=== PATIENT | female | born 1945 | race Caucasian/White ===

== ENCOUNTER 2022-03-30 19:00 | Observation (INO) ==
[2022-03-30] MEDS ORDERED: ONDANSETRON INJ 2 MG/ML 2 ML VIAL IV STA (19:37)
[2022-03-30] MEDS ORDERED: MoRPHine SULFATE 10 MG/ML CARP/VIAL IV STA (19:37)
[2022-03-30] MEDS ORDERED: SODIUM CHLORIDE 0.9% 1000ML 1,000 ML IV ONE (19:37)
[2022-03-30] MEDS ORDERED: MoRPHine SULFATE 4 MG/ML 1 ML CARP\\VIAL ONE (19:41)
[2022-03-30] MEDS ORDERED: MoRPHine SULFATE 2 MG/ML CARP ONE (19:42)
--- NOTE | 2022-03-30 19:43 | XRay Report ---
XR chest 1V portable HISTORY: 76 years-old Female cp acute chest pain COMPARISON: None TECHNIQUE: AP view of the chest FINDINGS: The cardiomediastinal and hilar silhouettes are within normal limits. No pneumothorax, large pleural effusion, airspace consolidation or overt pulmonary edema. Mild blunting of the costophrenic angles. Atherosclerosis of the aorta. Bones of the chest appear grossly intact. IMPRESSION: Mild blunting of the costophrenic angles may be secondary to atelectasis versus trace ple ural effusions. ACT 112: Negative or not required by law. The above report was generated using voice recognition software. It may contain grammatical, syntax o r spelling errors. Electronically signed by: Jayce Noonan M.D. 03/30/2022 7:42 PM
--- NOTE | 2022-03-30 20:05 | Emergency Department Note ---
Impression & Plan Renal colic, Hydronephrosis, Acute flank pain, Elevated troponin ED Provider Note NAME: KAREN ROSS AGE: 76 SEX: F : 1945 ARRIVES VIA: Ambulance INFORMANT: Patient ED PROVIDER(S): Darnell Cason DO CHIEF COMPLAINT: abdominal pain and neck pain HPI: Patient is a 76-year-old female who presents the ER for right-sided flank pain. She notes that started today around 5 PM. She describes it as sharp stabbing. It was initially a 10 out of 10 and has improved slightly. Admits to nausea but no vomiting. No dysuria, urgency, or frequency. Feels exactly her previous stones. She also admits to bilateral neck pain which started after the severe right flank pain. This feels like the previous time that she was admitted and had a cardiomyopathy/Takotsubo's. She denies any chest pain admits to some mild shortness of breath. No other exacerbating or remitting factors. ROS: See above HPI for pertinent positives & negatives. A total of 10 systems reviewed and were otherwise negative. PAST MEDICAL HISTORY:See Below PAST SURGICAL HISTORY:See Below FAMILY HISTORY:See Below SOCIAL HISTORY:See Below HOME MEDICATIONS:See Below ALLERGIES:See Below VITALS:See Below PHYSICAL EXAMINATION: GENERAL: Sitting up in bed, alert, well appearing, well nourished, no distress, non-toxic EYE EXAM: normal conjunctiva. PERRL and EOM's grossly intact. OROPHARYNX: no exudate, no erythema, lips, buccal mucosa, and tongue normal and mucous membranes are moist NECK: supple, no nuchal rigidity, no adenopathy, non-tender LUNGS: Clear to auscultation. Normal chest wall mechanics HEART: no murmurs, S1 normal and S2 normal ABDOMEN: abdomen soft, non-tender, normo-active bowel sounds, no masses, no rebound or guarding. UPPER EXTREMITIES: upper extremities are grossly normal. LOWER EXTREMITIES: No pitting edema. NEURO EXAM: Normal sensorium, cranial nerves II-XII grossly intact, normal speech, no gross weakness of arms, no gross weakness of legs. MEDICAL DECISION MAKING: Patient is a 76-year-old female who presents the ER for the above-stated complaint. IV was established blood work was obtained. Labs show no significant leukocytosis or anemia. BMP along with LFTs bilirubin was unremarkable. Lipase is normal. UA with hematuria and contaminated UA. COVID was negative. Troponin was elevated at 120. CT shows an 8 mm stone with hydronephrosis at the UVJ likely causing the severe right flank pain. Do favor that elevated troponin is likely secondary to the pain but cannot be certain. Patient was given morphine Toradol fluids and Zofran. Discussed with Dr. Storey admitted for further work-up. She did become slightly hypoxic with the narcotics. We will hold on heparin as she is having a fair amount of hematuria at this time. Will defer to the hospitalist. She was given aspirin. Triage Nursing notes reviewed. Limited review of prior medical records performed Vital Signs: reviewed and remarkable for no significant abnormalities Differential diagnosis: Differential diagnoses includes but is not limited to gastritis, peptic ulcer disease, GERD, gallbladder disease, pancreatitis, small bowel obstruction, acute coronary syndrome, pericarditis, ischemic bowel, irritable bowel disease, irritable bowel syndrome, appendicitis, diverticulitis, malignancy, hernia, urinary tract infection, torsion, /ectopic (if female), perforation, trauma, infectious. ER treatment provided: See below Diagnostics interpreted by me: ECG: Sinus rhythm rate 80 Intermittent PVCs Left axis QTC 456 Cardiac Monitoring: An order was placed for continuous cardiac monitoring. The monitor shows a rate of 75 with sinus rhythm. Laboratory studies: As stated above and show below. Imaging studies: CT abdomen pelvis as described above Portable AP upright 1 view chest unremarkable Consultation(s): Discussed Yoshi Storey for further evaluation Procedures: none Critical Care: None Past Med/Surg History Medical History (Updated 03/30/22 @ 22:33 by Darnell Cason DO) ADD (attention deficit disorder) Cervical spinal stenosis Coronary artery disease (11/2018) nonobstructive Depression History of basal cell carcinoma History of non-ST elevation myocardial infarction (NSTEMI) (11/26/18) Lumbar spinal stenosis Restless leg syndrome Takotsubo cardiomyopathy (11/2018) Vitamin D deficiency Surgical History History of hysteroscopy History of Mohs micrographic surgery for skin cancer Nose for BCC History of wisdom tooth extraction Hx of breast lump removal bilateral Hx of lithotripsy S/P dilatation and curettage Family History Father Hypertension Coronary heart disease Hx of CABG Stroke Son , Tragic loss No problems noted. Mother Stroke Heart valve replaced Rheumatic fever Denies family history of Ovarian cancer Prostate cancer Myocardial infarction Breast cancer Colorectal cancer Social History Smoking Status: Former smoker Tobacco Type: Cigarettes Age Started Using Tobacco: 29; Age Quit Using Tobacco: 66; packs per day: 1; Number of Years Since Quit: 9; Second Hand Exposure: No; Hx Alcohol Use: No Hx Substance Use: No Preferred Language: Armenian Communication Ability: Effective Visual Impairment: Limited Hearing Ability: Normal Beliefs That Will Affect Care: None marital status: / Current Living Situation: Alone 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; [employer]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 Feels Safe at Home: Yes Childhood Exposure to Second-Hand Smoke: Yes caffeine: Yes (Coffee x 2 per day.) during the past year weight has: increased > 10 lbs Dental Care, Regularly: Yes Physical Activity Frequency: Daily Seatbelt Use: always Sunscreen Use: Yes Allergies Allergies Allergy/AdvReac Type Severity Reaction Status Date / Time iodine Allergy Unknown Unknown Verified 03/30/22 19:44 paroxetine Allergy Unknown Unknown Verified 03/30/22 19:44 Penicillins Allergy Unknown Unknown Verified 03/30/22 19:44 ampicillin AdvReac Intermediate Hives Verified 03/30/22 19:44 fluoxetine AdvReac Intermediate hand pain Verified 03/30/22 19:44 Sulfa (Sulfonamide AdvReac Intermediate Nausea Verified 03/30/22 19:44 Antibiotics) Home Meds Home Medications Medication Instructions Recorded Confirmed aspirin 81 mg tablet,delayed 81 mg PO DAILY 10/18/19 03/30/22 release (Adult Low Dose Aspirin) baclofen 10 mg tablet 10 mg PO BID PRN 08/14/20 03/30/22 magnesium 250 mg tablet 250 mg PO DAILY 08/14/20 03/30/22 cetirizine 10 mg tablet 10 mg PO DAILY PRN 07/23/21 03/30/22 diphenhydramine HCl 25 mg capsule 25 mg PO DAILY PRN cap 07/23/21 03/30/22 famotidine 10 mg tablet 10 mg PO DAILY 07/23/21 03/30/22 simethicone 125 mg capsule (Gas-X 125 mg PO DAILY PRN 07/23/21 03/30/22 Extra Strength) carvedilol 6.25 mg tablet (Coreg) 6.25 mg PO QPM 03/30/22 03/30/22 duloxetine 30 mg capsule,delayed 30 mg PO QPM 03/30/22 03/30/22 release (Cymbalta) hydrocodone 5 mg-acetaminophen 325 1 tab PO DIRECTED PRN 03/30/22 03/30/22 mg tablet Previous Rx's Medication Instructions Recorded ropinirole 0.5 mg tablet 0.25 mg PO HS PRN #30 tab 07/16/20 cholecalciferol (vitamin D3) 50 50 mcg PO DAILY #30 cap 02/25/21 mcg (2,000 unit) capsule ramipril 5 mg capsule 5 mg PO DAILY #90 cap 11/12/21 spironolactone 25 mg tablet 25 mg PO DAILY #90 tab 11/12/21 Results & Data (ED) Vital Signs Vital Signs - 24 hr 03/30/22 19:03 03/30/22 21:00 Temperature 36.7 C Temperature Source Oral Pulse Rate 78 Pulse Rate [Right Finger] 86 Pulse Rhythm Regular Pulse Rhythm [Right Finger] Regular Pulse Strength Normal Pulse Strength [Right Finger] Normal Respiratory Rate 20 20 Respiratory Effort / Characteristics Non-Labored Non-Labored Respiratory Depth Normal Normal Respiratory Pattern Regular Regular Blood Pressure 144/77 H Blood Pressure [Right Arm] 143/83 H Blood Pressure Mean 99 Blood Pressure Mean [Right Arm] 103 Blood Pressure Position Lying Blood Pressure Position [Right Arm] Lying Pulse Oximetry 95 95 Oxygen Delivery Method Room Air Nasal Cannula Oxygen Flow Rate 2 Sepsis Recent Fever Within 48 Hours No Sepsis New/Unexplained Change in Mental Status No Sepsis Action Taken by Nursing No Action Required Laboratory Data Result diagrams: 03/30/22 19:32 03/30/22 19:32 Lab Results 03/30/22 03/30/22 03/30/22 Range/Units 19:32 19:32 19:34 WBC 7.37 (4.8-10.8) K/uL RBC 4.23 (4.2-5.4) M/uL Hgb 13.1 (12.0-16.0) g/dL Hct 39.1 (37-47) % MCV 92.4 (80-100) fL MCH 31.0 (25-34) pg MCHC 33.5 (32-36) g/dL RDW Std Deviation 43.5 (36.4-46.3) fL RDW Coeff of Nadia 12.8 (11.5-14.5) % Plt Count 282 (130-400) K/uL MPV 10.8 H (7.4-10.4) fL Immature Gran % (Auto) 0.1 % Neut % (Auto) 56.7 % Lymph % (Auto) 25.8 % [place] % (Auto) 12.5 % Eos % (Auto) 4.6 % Baso % (Auto) 0.3 % Neut # (Auto) 4.18 (1.4-6.5) K/uL Lymph # (Auto) 1.90 (1.2-3.4) K/uL [place] # (Auto) 0.92 H (0.11-0.59) K/uL Eos # (Auto) 0.34 (0-0.5) K/uL Baso # (Auto) 0.02 (0-0.2) K/uL Immature Gran # (Auto) 0.01 (0.00-0.02) K/uL Sodium 136 (136-145) mmol/L Potassium 4.0 (3.5-5.1) mmol/L Chloride 103 (98-107) mmol/L Carbon Dioxide 25 (21-32) mmol/L Anion Gap 8 (3-11) BUN 18 (6-23) mg/dl Creatinine 0.75 (0.6-1.2) mg/dl Est Cr Clr Drug Dosing 73.6 ml/min Est GFR ( Amer) 90.4 ml/min Est GFR (Non-Af Amer) 78.0 ml/min BUN/Creatinine Ratio 24.0 H (10-20) Glucose 128 H (70-99(Fasting)) mg/dl Calcium 9.0 (8.5-10.1) mg/dl Total Bilirubin 0.8 (0.2-1.0) mg/dl AST 16 (13-39) U/L ALT 13 (7-52) U/L Alkaline Phosphatase 69 (34-104) U/L Troponin I High Sens 120.4 H* (0-14) pg/ml Total Protein 7.3 (6.0-8.3) gm/dl Albumin 4.3 (3.4-5.0) gm/dl Globulin 3.0 (2.5-4.0) gm/dl Albumin/Globulin Ratio 1.4 (0.9-2) Lipase 18 (11-82) U/L Urine Color [place] Urine Appearance Cloudy A (Clear) Urine pH 5.5 (4.5-7.5) Ur Specific [place] 1.020 (1.000-1.030) Urine Protein 3+ H (Negative) Urine Glucose (UA) Negative (Negative) Urine Ketones Negative (Negative) Urine Blood 3+ H (Negative) Urine Nitrite Negative (Negative) Urine Bilirubin Negative (Negative) Urine Urobilinogen Negative (Negative) Ur Leukocyte Esterase 2+ H (Negative) Urine WBC (Auto) >30 H (0-5) /hpf Urine RBC (Auto) >30 H (0-4) /hpf U Hyaline Cast (Auto) 1-5 (0-5) /lpf U Epithel Cells (Auto) >30 H (0-5) /lpf Urine Bacteria (Auto) 1+ H (Negative) SARS-CoV-2, RNA, NAAT (NEGATIVE) 03/30/22 Range/Units 21:30 WBC (4.8-10.8) K/uL RBC (4.2-5.4) M/uL Hgb (12.0-16.0) g/dL Hct (37-47) % MCV (80-100) fL MCH (25-34) pg MCHC (32-36) g/dL RDW Std Deviation (36.4-46.3) fL RDW Coeff of Nadia (11.5-14.5) % Plt Count (130-400) K/uL MPV (7.4-10.4) fL Immature Gran % (Auto) % Neut % (Auto) % Lymph % (Auto) % [place] % (Auto) % Eos % (Auto) % Baso % (Auto) % Neut # (Auto) (1.4-6.5) K/uL Lymph # (Auto) (1.2-3.4) K/uL [place] # (Auto) (0.11-0.59) K/uL Eos # (Auto) (0-0.5) K/uL Baso # (Auto) (0-0.2) K/uL Immature Gran # (Auto) (0.00-0.02) K/uL Sodium (136-145) mmol/L Potassium (3.5-5.1) mmol/L Chloride (98-107) mmol/L Carbon Dioxide (21-32) mmol/L Anion Gap (3-11) BUN (6-23) mg/dl Creatinine (0.6-1.2) mg/dl Est Cr Clr Drug Dosing ml/min Est GFR ( Amer) ml/min Est GFR (Non-Af Amer) ml/min BUN/Creatinine Ratio (10-20) Glucose (70-99(Fasting)) mg/dl Calcium (8.5-10.1) mg/dl Total Bilirubin (0.2-1.0) mg/dl AST (13-39) U/L ALT (7-52) U/L Alkaline Phosphatase (34-104) U/L Troponin I High Sens (0-14) pg/ml Total Protein (6.0-8.3) gm/dl Albumin (3.4-5.0) gm/dl Globulin (2.5-4.0) gm/dl Albumin/Globulin Ratio (0.9-2) Lipase (11-82) U/L Urine Color Urine Appearance (Clear) Urine pH (4.5-7.5) Ur Specific [place] (1.000-1.030) Urine Protein (Negative) Urine Glucose (UA) (Negative) Urine Ketones (Negative) Urine Blood (Negative) Urine Nitrite (Negative) Urine Bilirubin (Negative) Urine Urobilinogen (Negative) Ur Leukocyte Esterase (Negative) Urine WBC (Auto) (0-5) /hpf Urine RBC (Auto) (0-4) /hpf U Hyaline Cast (Auto) (0-5) /lpf U Epithel Cells (Auto) (0-5) /lpf Urine Bacteria (Auto) (Negative) SARS-CoV-2, RNA, NAAT NEGATIVE (NEGATIVE) Administered Medications Discontinued Medications Aspirin (Aspirin Chew 324 Mg) 324 mg PO NOW STA Stop: 03/30/22 20:44 Last Admin: 03/30/22 21:08 Dose: 324 mg Documented by: [id number] Sodium Chloride (Nss 1000ml) 1,000 mls @ 999 mls/hr IV .Q1H1M ONE Stop: 03/30/22 20:37 Last Infusion: 03/30/22 21:21 Dose: 0 mls/hr Documented by: [id number] Admin: 03/30/22 19:45 Dose: 999 mls/hr Documented by: [id number] Ketorolac Tromethamine (Ketorolac Tromethamine 15 Mg/Ml Vial) 15 mg IV NOW ONE Stop: 03/30/22 20:59 Last Admin: 03/30/22 21:09 Dose: 15 mg Documented by: [id number] Morphine Sulfate (Morphine Sulfate 10 Mg/Ml Carp/Vial) 6 mg IV NOW STA Stop: 03/30/22 19:38 Last Admin: 03/30/22 19:52 Dose: Not Given Documented by: [id number] Morphine Sulfate (Morphine Sulfate 4 Mg/Ml 1 Ml Carp\Vial) Confirm Administered Dose 4 mg .ROUTE .STK-MED ONE Stop: 03/30/22 19:42 Last Admin: 03/30/22 19:45 Dose: 4 mg Documented by: [id number] Morphine Sulfate (Morphine Sulfate 2 Mg/Ml Carp) Confirm Administered Dose 2 mg .ROUTE .STK-MED ONE Stop: 03/30/22 19:43 Last Admin: 03/30/22 19:45 Dose: 2 mg Documented by: [id number] Ondansetron HCl (Ondansetron Inj 2 Mg/Ml 2 Ml Vial) 4 mg IV NOW STA Stop: 03/30/22 19:38 Last Admin: 03/30/22 19:45 Dose: 4 mg Documented by: [id number] Imaging Data Radiologist's Impression: Chest X-Ray 03/30/22 19:09 XR chest 1V portable HISTORY: 76 years-old Female cp acute chest pain COMPARISON: None TECHNIQUE: AP view of the chest FINDINGS: The cardiomediastinal and hilar silhouettes are within normal limits. No pneumothorax, large pleural effusion, airspace consolidation or overt pulmonary edema. Mild blunting of the costophrenic angles. Atherosclerosis of the aorta. Bones of the chest appear grossly intact. IMPRESSION: Mild blunting of the costophrenic angles may be secondary to atelectasis versus trace pleural effusions. ACT 112: Negative or not required by law. The above report was generated using voice recognition software. It may contain grammatical, syntax or spelling errors. Electronically signed by: Jayce Noonan M.D. 03/30/2022 7:42 PM Abdomen/Pelvis CT 03/30/22 19:[address] WITHOUT CONTRAST CT DOSE: 748.67 mGy.cm HISTORY: Acute right-sided flank pain in a patient with history of kidney stones r flank pain TECHNIQUE: Multiaxial CT images of the abdomen and pelvis were performed without contrast. A dose lowering technique was utilized adhering to the principles of ALARA. COMPARISON STUDY: CT abdomen 01/20/2010 FINDINGS: Mitral annular calcifications. Mild bibasilar atelectasis. Partially imaged 3 mm nodule the basal right lower lobe on image 1 of series 3. Mild intralobular septal thickening of the lung bases. There is no pneumatosis or pneumoperitoneum. The unenhanced spleen, pancreas, gallbladder and adrenal glands are unremarkable. There are a few hypodense foci within the liver suggestive of cysts measuring up to 2 cm within the right hepatic lobe. The 2 cm lesion has increased in size from 2010. Numerous nonobstructing calculi of the right kidney measure up to 7 mm. There is mild to moderate right-sided hydroureteronephrosis secondary to an obstructing 8 x 6 x 5 mm calculus of the distal right ureter just proximal to the ureterovesicular junction. Numerous large not affecting calculi of the left kidney measure up to approximately 2 cm. There is a 1.6 cm calculus of the left renal pelvis. Mild associated pelviectasis with adjacent inflammatory stranding. Partially decompressed urinary bladder. 2.1 cm hypodense structure abutting the left fundal uterus is likely benign, previously 1.1 cm. Atherosclerosis of the aorta. There is no lymphadenopathy identified. No bowel obstruction or bowel wall thickening. Colonic diverticulosis. Noninflamed appendix. Mild colonic fecal retention. Tiny fat filled periumbilical hernia. Lumbar levoscoliosis. Degenerative changes of the spine, pelvis and hips. IMPRESSION: 1. Mild to moderate right-sided hydroureteronephrosis secondary to an obstructing 8 mm calculus of the right ureterovesicular junction. 2. Numerous large bilateral renal calculi. This includes a 1.6 cm calculus of the left renal pelvis resulting in mild associated pelviectasis without nasreen hydronephrosis. 3. No bowel obstruction or bowel wall thickening. Noninflamed appendix. 4. Additional findings as above. ACT 112: Negative or not required by law. The above report was generated using voice recognition software. It may contain grammatical, syntax or spelling errors. Electronically signed by: Jayce Noonan M.D. 03/30/2022 8:31 PM Discharge Plan Visit Data Chief Complaint: Flank Pain ED Provider: Darnell Cason Discharge Problem: Renal colic, Hydronephrosis, Acute flank pain, Elevated troponin Forms Stand Alone Forms: [facility] Prescriptions Prescriptions: No Action ropinirole 0.5 mg tablet 0.25 mg PO HS PRN (Reason: restless leg(s)) Qty: 30 RF: 2 cholecalciferol (vitamin D3) 50 mcg (2,000 unit) capsule 50 mcg PO DAILY Qty: 30 RF: 0 spironolactone 25 mg tablet 25 mg PO DAILY Qty: 90 RF: 3 ramipril 5 mg capsule 5 mg PO DAILY Qty: 90 RF: 3 diphenhydramine HCl 25 mg capsule 25 mg PO DAILY PRN (Reason: ALLERGIES/SLEEP/ITCHING) RF: 0 cetirizine 10 mg tablet 10 mg PO DAILY PRN (Reason: Congestion) RF: 0 simethicone [Gas-X Extra Strength] 125 mg capsule 125 mg PO DAILY PRN (Reason: GAS DISCOMFORT) RF: 0 famotidine 10 mg tablet 10 mg PO DAILY RF: 0 aspirin [Adult Low Dose Aspirin] 81 mg tablet,delayed release (DR/EC) 81 mg PO DAILY RF: 0 baclofen 10 mg tablet 10 mg PO BID PRN (Reason: MUSCLE SPASMS) RF: 0 magnesium 250 mg tablet 250 mg PO DAILY RF: 0 hydrocodone-acetaminophen 5-325 mg tablet 1 tab PO DIRECTED PRN (Reason: Pain) RF: 0 carvedilol [Coreg] 6.25 mg tablet 6.25 mg PO QPM RF: 0 duloxetine [Cymbalta] 30 mg capsule,delayed release(DR/EC) 30 mg PO QPM RF: 0 Referrals Referrals: Angeles Foster DO [Primary Care Provider] - Discharge Problem: Hydronephrosis Qualifiers: Hydronephrosis type: unspecified Qualified Code(s): N13.30 - Unspecified hydronephrosis
[2022-03-30 20:09] LABS: Basophils # (auto) 0.02 K/uL (0-0.2); Basophils % (auto) 0.3 %; Eosinophils # (auto) 0.34 K/uL (0-0.5); Eosinophils % (auto) 4.6 %; Hematocrit (blood only) 39.1 % (37-47); Hemoglobin 13.1 g/dL (12.0-16.0); Immature Granulocytes # (auto) 0.01 K/uL (0.00-0.02); Immature Granulocytes % (auto) 0.1 %; Lymphocytes % (auto) 25.8 %; Mean Corpuscular Hgb Conc 33.5 g/dL (32-36); Mean Corpuscular Volume 92.4 fL (80-100); Mean Platelet Volume 10.8 fL (7.4-10.4); Monocytes # (auto) 0.92 K/uL (0.11-0.59); Monocytes % (auto) 12.5 %; Neutrophils # (auto) 4.18 K/uL (1.4-6.5); Neutrophils % (auto) 56.7 %; Platelet Count 282 K/uL (130-400); RDW Coefficient of Variation 12.8 % (11.5-14.5); RDW Standard Deviation 43.5 fL (36.4-46.3); Red Blood Count 4.23 M/uL (4.2-5.4); White Blood Count 7.37 K/uL (4.8-10.8)
--- NOTE | 2022-03-30 20:33 | CT Scan Report ---
ABDOMEN AND PELVIS CT WITHOUT CONTRAST CT DOSE: 748.67 mGy.cm HISTORY: Acute right-sided flank pain in a patient with history of kidney stones r flank pain TECHNIQUE: Multiaxial CT images of the abdomen and pelvis were performed without contrast. A dose lo wering technique was utilized adhering to the principles of ALARA. COMPARISON STUDY: CT abdomen 01/20/2010 FINDINGS: Mitral annular calcifications. Mild bibasilar atelectasis. Partially imaged 3 mm nodule the basal rig ht lower lobe on image 1 of series 3. Mild intralobular septal thickening of the lung bases. There is no pneumatosis or pneumoperitoneum. The unenhanced spleen, pancreas, gallbladder and adrenal glands are unremarkable. There are a few hypodense foci within the liver suggestive of cysts measuring up to 2 cm within the right hepatic lobe. The 2 cm lesion has increased in size from 2010. Numerous nonobstructing calculi of the right kidney measure up to 7 mm. There is mild to moderate rig ht-sided hydroureteronephrosis secondary to an obstructing 8 x 6 x 5 mm calculus of the distal right ureter just proximal to the ureterovesicular junction. Numerous large not affecting calculi of the le ft kidney measure up to approximately 2 cm. There is a 1.6 cm calculus of the left renal pelvis. Mild associated pelviectasis with adjacent inflammatory stranding. Partially decompressed urinary bladder . 2.1 cm hypodense structure abutting the left fundal uterus is likely benign, previously 1.1 cm. Ath erosclerosis of the aorta. There is no lymphadenopathy identified. No bowel obstruction or bowel wall thickening. Colonic diverticulosis. Noninflamed appendix. Mild col onic fecal retention. Tiny fat filled periumbilical hernia. Lumbar levoscoliosis. Degenerative change s of the spine, pelvis and hips. IMPRESSION: 1. Mild to moderate right-sided hydroureteronephrosis secondary to an obstructing 8 mm calculus of th e right ureterovesicular junction. 2. Numerous large bilateral renal calculi. This includes a 1.6 cm calculus of the left renal pelvis r esulting in mild associated pelviectasis without nasreen hydronephrosis. 3. No bowel obstruction or bowel wall thickening. Noninflamed appendix. 4. Additional findings as above. ACT 112: Negative or not required by law. The above report was generated using voice recognition software. It may contain grammatical, syntax o r spelling errors. Electronically signed by: Jayce Noonan M.D. 03/30/2022 8:31 PM
[2022-03-30 20:34] LABS: Albumin Globulin Ratio 1.4 (0.9-2); Albumin Level 4.3 gm/dl (3.4-5.0); Bilirubin,Total 0.8 mg/dl (0.2-1.0); Creatinine Clr Calc Pharmacy 73.6 ml/min; Est GFR (African American) 90.4 ml/min; Total Protein 7.3 gm/dl (6.0-8.3)
[2022-03-30 20:40] LABS: Troponin I High Sensitivity 120.4 pg/ml (0-14)
[2022-03-30] MEDS ORDERED: ASPIRIN CHEW 324 MG PO STA (20:43)
[2022-03-30 20:50] LABS: Appearance Urine Cloudy (Clear); Bacteria Urine Automated 1+ (Negative); Bilirubin Urine Negative (Negative); Blood Urine 3+ (Negative); Color Urine Orange; Epithelial Cell Urine Auto >30 /lpf (0-5); Glucose Urine UA Negative (Negative); Ketones Urine Negative (Negative); Leukocyte Esterase Urine 2+ (Negative); Nitrite Urine Negative (Negative); Protein Urine 3+ (Negative); RBC Urine Automated >30 /hpf (0-4); Urobilinogen Urine Negative (Negative); WBC Urine Automated >30 /hpf (0-5); pH Urine 5.5 (4.5-7.5)
[2022-03-30] MEDS ORDERED: KETOROLAC TROMETHAMINE 15 MG/ML VIAL IV ONE (20:58)
[2022-03-30] MEDS ORDERED: LORazepam 0.5 MG in SYRINGE 0.125 ML IV STA (22:00)
[2022-03-30] MEDS ORDERED: LORazepam 2 MG/1 ML VIAL IV STA (22:16)
--- NOTE | 2022-03-30 22:19 | Urology Consultation ---
Date of Consultation March 30, 2022 Assessment & Plan (1) Renal colic: The patient is being admitted to the hospital service. Due to her cardiac history and elevated troponin she is undergoing cardiac evaluation. Concerning patient's nephrolithiasis we recommend proceeding as follows: Make patient n.p.o. after midnight. If patient is medically cleared or she will be ready for any cystoscopy that may be required. Her cardiac issues will take precedence over this for the present time. At the present time the patient is afebrile, hemodynamically stable, has normal renal function, and has a nonelevated white blood cell count therefore an emergent urologic procedure is not required at this time. Would recommend hydrating with IV fluids but performed so cautiously with concern of underlying cardiac pathology I discussed with the medical service and they are planning on initiating antibiotics due to her abnormal urinalysis Supervising Physician Co-Signing Physician Notes I have discussed Ms. Castro's case with Jhon Hernandez PA-C and agree with the above documentation. She has an 8 mm right sided stone, as well as an elevated troponin. She is currently undergoing work-up for her cardiac issues. There is no significant evidence of infection and she is hemodynamically stable. Please keep her n.p.o. for reassessment. History of Present Illness Reason for Consultation: Nephrolithiasis History of Present Illness This is a 76-year-old female who presented to [facility] emergency department secondary to right-sided flank pain. Patient says that she was feeling fine until about 5:00 PM today when she developed sudden onset of right flank pain with radiation to the front of her abdomen. She had associated nausea and vomiting. She denies any fevers but did report occasional sweats. She denies any dysuria but does report some suprapubic pressure and notes that when she most recently voided she noted some gross hematuria. Patient does have a history of kidney stones in the past and she says she has required urologic procedure secondary to this but it has been several years. The patient does have a significant cardiac history as she has suffered from Takatsubo syndrome, however she has recovered from this. Due to her elevated troponin (noted below) I did ask her if she experienced any chest pain prior to admission which she denied to me. She does however report difficulty catching her breath at times. Concerning her cardiac history her most recent echo available for my review was from 10/13/2020. This showed the patient had an ejection fraction of 60% with normal wall motion. No regional wall motion abnormalities were known. There were no significant valvular abnormalities on the study. Today in the emergency department the patient had labs and imaging which I independently reviewed. Chest x-ray showed some blunting of the costophrenic angles with trace pleural effusions. A CT scan of the abdomen pelvis showed the patient had an obstructing 8 mm kidney stone on the right side at the ureterovesical junction causing hydronephrosis. Labs include a CBC her white blood cell count, hemoglobin, hematocrit, and platelet count were normal. Chemistry profile showed a sodium, potassium, BUN, and creatinine were all normal. The patient did have an elevated troponin at a level of 120.4. Urinalysis did show cloudy urine with 2+ leukocyte Estrace and greater than 30 white blood cells per high-power field. There is 1+ bacteria in the study but this was negative for nitrites. A COVID test was performed and was noted to be negative. At the time of my interview the patient was resting comfortably in bed and her pain had markedly improved. Allergies Allergy/AdvReac Type Severity Reaction Status Date / Time iodine Allergy Unknown Unknown Verified 03/30/22 19:44 paroxetine Allergy Unknown Unknown Verified 03/30/22 19:44 Penicillins Allergy Unknown Unknown Verified 03/30/22 19:44 ampicillin AdvReac Intermediate Hives Verified 03/30/22 19:44 fluoxetine AdvReac Intermediate hand pain Verified 03/30/22 19:44 Sulfa (Sulfonamide AdvReac Intermediate Nausea Verified 03/30/22 19:44 Antibiotics) Home Medications Medication Instructions Recorded Confirmed Type aspirin 81 mg tablet,delayed 81 mg PO DAILY 10/18/19 03/30/22 History release (Adult Low Dose Aspirin) ropinirole 0.5 mg tablet 0.25 mg PO HS PRN #30 tab 07/16/20 03/30/22 Rx baclofen 10 mg tablet 10 mg PO BID PRN 08/14/20 03/30/22 History magnesium 250 mg tablet 250 mg PO DAILY 08/14/20 03/30/22 History cholecalciferol (vitamin D3) 50 50 mcg PO DAILY #30 cap 02/25/21 03/30/22 Rx mcg (2,000 unit) capsule cetirizine 10 mg tablet 10 mg PO DAILY PRN 07/23/21 03/30/22 History diphenhydramine HCl 25 mg capsule 25 mg PO DAILY PRN cap 07/23/21 03/30/22 History famotidine 10 mg tablet 10 mg PO DAILY 07/23/21 03/30/22 History simethicone 125 mg capsule (Gas-X 125 mg PO DAILY PRN 07/23/21 03/30/22 History Extra Strength) ramipril 5 mg capsule 5 mg PO DAILY #90 cap 11/12/21 03/30/22 Rx spironolactone 25 mg tablet 25 mg PO DAILY #90 tab 11/12/21 03/30/22 Rx carvedilol 6.25 mg tablet (Coreg) 6.25 mg PO QPM 03/30/22 03/30/22 History duloxetine 30 mg capsule,delayed 30 mg PO QPM 03/30/22 03/30/22 History release (Cymbalta) hydrocodone 5 mg-acetaminophen 325 1 tab PO DIRECTED PRN 03/30/22 03/30/22 History mg tablet Patient History Medical History (Updated 03/30/22 @ 23:14 by Yoshi Storey MD) ADD (attention deficit disorder) Cervical spinal stenosis Coronary artery disease (11/2018) nonobstructive Depression History of basal cell carcinoma History of non-ST elevation myocardial infarction (NSTEMI) (11/26/18) Lumbar spinal stenosis Restless leg syndrome Takotsubo cardiomyopathy (11/2018) Vitamin D deficiency Surgical History History of hysteroscopy History of Mohs micrographic surgery for skin cancer Nose for BCC History of wisdom tooth extraction Hx of breast lump removal bilateral Hx of lithotripsy S/P dilatation and curettage Family History Father Hypertension Coronary heart disease Hx of CABG Stroke Son , Tragic loss No problems noted. Mother Stroke Heart valve replaced Rheumatic fever Denies family history of Ovarian cancer Prostate cancer Myocardial infarction Breast cancer Colorectal cancer Social History Smoking Status: Former smoker Tobacco Type: Cigarettes Age Started Using Tobacco: 29; Age Quit Using Tobacco: 66; packs per day: 1; Number of Years Since Quit: 9; Second Hand Exposure: No; Do You Dip or Chew Tobacco: No; Hx Alcohol Use: Yes Alcohol type: wine and hard liquor Alcohol Intake Frequency: Monthly or Less Hx Substance Use: No Preferred Language: Mohawk Communication Ability: Effective Visual Impairment: Limited Hearing Ability: Normal Operating Room Scheduler Required: No Beliefs That Will Affect Care: None marital status: / Current Living Situation: Alone 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; 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 Other Information That Helps Us Care for You: No Feels Safe at Home: Yes Safety Concerns: Feels Safe At This Time Childhood Exposure to Second-Hand Smoke: Yes caffeine: Yes (Coffee x 2 per day.) during the past year weight has: increased > 10 lbs Dental Care, Regularly: Yes Physical Activity Frequency: Daily Seatbelt Use: always Sunscreen Use: Yes Assistive Devices: Denture - Upper, Denture - Lower and Glasses Assistive Devices Comment: contacts Review of Systems Constitutional: + sweats; no fever Eyes: no eye pain Ear, Nose, Mouth, Throat: no ear pain Respiratory: + dyspnea Cardiovascular: no chest pain Gastrointestinal: + abdominal pain, + nausea and + vomiting Genitourinary: as per Subjective / HPI Musculoskeletal: + back pain (Right flank) Integumentary: no rash Neurologic: no localized weakness Physical Exam Constitutional: well developed and well nourished; no acute distress Eyes: no conjunctival abnormality ENMT: Ears: no hearing impairment Mouth: no oropharynx abnormality Neck: trachea midline Respiratory: normal respiratory effort; no respiratory distress and no labored breathing Cardiovascular: Rate/Rhythm: regular rate and regular rhythm Gastrointestinal (Abdomen): Soft and nonrigid, nontender to palpation. Musculoskeletal: No calf tenderness Skin: no rashes Neurologic: moves all extremities Psychiatric: A+Ox3, euthymic affect Genitourinary: no CVA tenderness Results & Data ([facility]) Vital Signs (Past 12 Hours) Vital Signs Temp Pulse Pulse Resp BP BP Pulse Ox 03/30/22 21:00 86 20 143/83 H 95 03/30/22 19:03 36.7 C 78 20 144/77 H 95 PG Care Time/CCT Total # of Minutes Spent Total Time Spent with Patient: Total time spent is greater than 50% in coordination of care (as documented) at patient's floor/unit and/or counseling patient: Coding Level of Care Code 27055 Inpt Consult Level 5 Diagnoses Renal colic N23
--- NOTE | 2022-03-30 23:24 | History & Physical Report ---
Date of Service March 30, 2022 Assessment & Plan (1) Renal colic: Plan: CT a/p in the ER showed "Mild to moderate right-sided hydroureteronephrosis secondary to an obstructing 8 mm calculus of the right ureterovesicular junction." - Urology consulted - Gentle IV fluids given hx of cardiomyopathy - Pain and nausea control - NPO @ midnight for stent tomorrow - Flomax - Begin ceftriaxone; follow urine cx - Discussed with overnight urology PA - ideally would like to get results of TTE prior to going for stent to ensure no repeat of her cardiomyopathy. (2) Elevated troponin: Plan: Initial troponin elevated to 120. EKG with many PVCs. Discussed with on-call cardiology; does not feel this is new LBBB. Had ongoing lower jaw pain that resolved with Ativan 0.5 mg x 1; however, given similar presentation to prior cardiomyopathy, I told the patient to alert the RN overnight if it returns. - Closely trend EKGs and troponins - TTE ordered for the morning; if there are any abnormalities, would consult cardiology. (3) Takotsubo cardiomyopathy: Plan: Had an episode very similar to the present one in 11/2018 with nephrolithiasis followed by neck/jaw pain. EF was found to be 30-35%. She underwent catheterization which demonstrated non-obstructive CAD. She was diagnosed with stress-induced cardiomyopathy. She had a LifeVest for some time and was on goal- directed therapy. EF improved to 50 - 55% in 04/2019, and EF was 55-60% on echo in 10/2020 which is the last one I see. - This episode is concerningly similar to prior episode. - Continue home ASA, beta-alexx (though why carvedilol daily?), ACEi, and spironolactone - TTE ordered for AM (4) Hypertension: Plan: BP was 135/75 in the ER. - Continue above meds - Monitor BP (5) Depression: Plan: With anxiety. - Continue home duloxetine - Low-dose Ativan PRN for anxiety, though was clear with patient that she should alert RN if she has further neck/jaw pain. (6) DVT prophylaxis: Plan: SCDs - Hold heparin for now given likely procedure tomorrow Full code per patient wishes Admission and Anticipated Discharge Date Admission Date: March 30, 2022 History of Present Illness Primary Care Provider: Angeles Foster DO 76yo F w/ hx of Takasubo's cardiomyopathy who presents with right kidney stone. The patient was in her normal state of health until about 5:15pm today. She had acute onset right-sided flank pain with nausea, diaphoresis, and shortness of breath. The pain was 10/10 and wrapped around the right side of her abdomen. There were no alleviating factors. About 15 minutes after that, she notes she had some pain in the lower jaw area. She specifically denies chest pain, arm pain, or radiation from that area, but says it was just in the under side of jaw (bilaterally). She denies palpitations, denies lightheadedness, denies dizziness, denies any vomiting with this pain. However, she felt an increasing sense of panic, and that's when she decided to come to the ER. In the ER, she received a total of 10 mg of morphine as well as Toradol which she says has resolved her right flank pain at this time, but she notes that she still has some pain in the under side of her jaw which also makes her feel short of breath. Allergies Allergy/AdvReac Type Severity Reaction Status Date / Time iodine Allergy Unknown Unknown Verified 03/30/22 19:44 paroxetine Allergy Unknown Unknown Verified 03/30/22 19:44 Penicillins Allergy Unknown Unknown Verified 03/30/22 19:44 ampicillin AdvReac Intermediate Hives Verified 03/30/22 19:44 fluoxetine AdvReac Intermediate hand pain Verified 03/30/22 19:44 Sulfa (Sulfonamide AdvReac Intermediate Nausea Verified 03/30/22 19:44 Antibiotics) Home Medications Medication Instructions Recorded Confirmed Type aspirin 81 mg tablet,delayed 81 mg PO DAILY 10/18/19 03/30/22 History release (Adult Low Dose Aspirin) ropinirole 0.5 mg tablet 0.25 mg PO HS PRN #30 tab 07/16/20 03/30/22 Rx baclofen 10 mg tablet 10 mg PO BID PRN 08/14/20 03/30/22 History magnesium 250 mg tablet 250 mg PO DAILY 08/14/20 03/30/22 History cholecalciferol (vitamin D3) 50 50 mcg PO DAILY #30 cap 02/25/21 03/30/22 Rx mcg (2,000 unit) capsule cetirizine 10 mg tablet 10 mg PO DAILY PRN 07/23/21 03/30/22 History diphenhydramine HCl 25 mg capsule 25 mg PO DAILY PRN cap 07/23/21 03/30/22 History famotidine 10 mg tablet 10 mg PO DAILY 07/23/21 03/30/22 History simethicone 125 mg capsule (Gas-X 125 mg PO DAILY PRN 07/23/21 03/30/22 History Extra Strength) ramipril 5 mg capsule 5 mg PO DAILY #90 cap 11/12/21 03/30/22 Rx spironolactone 25 mg tablet 25 mg PO DAILY #90 tab 11/12/21 03/30/22 Rx carvedilol 6.25 mg tablet (Coreg) 6.25 mg PO QPM 03/30/22 03/30/22 History duloxetine 30 mg capsule,delayed 30 mg PO QPM 03/30/22 03/30/22 History release (Cymbalta) hydrocodone 5 mg-acetaminophen 325 1 tab PO DIRECTED PRN 03/30/22 03/30/22 History mg tablet Past Med/Surg History Medical History (Updated 03/30/22 @ 23:14 by Yoshi Storey MD) ADD (attention deficit disorder) Cervical spinal stenosis Coronary artery disease (11/2018) nonobstructive Depression History of basal cell carcinoma History of non-ST elevation myocardial infarction (NSTEMI) (11/26/18) Lumbar spinal stenosis Restless leg syndrome Takotsubo cardiomyopathy (11/2018) Vitamin D deficiency Surgical History History of hysteroscopy History of Mohs micrographic surgery for skin cancer Nose for BCC History of wisdom tooth extraction Hx of breast lump removal bilateral Hx of lithotripsy S/P dilatation and curettage Family History Father Hypertension Coronary heart disease Hx of CABG Stroke Son , Tragic loss No problems noted. Mother Stroke Heart valve replaced Rheumatic fever Denies family history of Ovarian cancer Prostate cancer Myocardial infarction Breast cancer Colorectal cancer Social History Smoking Status: Former smoker Tobacco Type: Cigarettes Age Started Using Tobacco: 29; Age Quit Using Tobacco: 66; packs per day: 1; Number of Years Since Quit: 9; Second Hand Exposure: No; Hx Alcohol Use: No Hx Substance Use: No Preferred Language: Turkmen Communication Ability: Effective Visual Impairment: Limited Hearing Ability: Normal Beliefs That Will Affect Care: None marital status: / Current Living Situation: Alone 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; 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 Feels Safe at Home: Yes Childhood Exposure to Second-Hand Smoke: Yes caffeine: Yes (Coffee x 2 per day.) during the past year weight has: increased > 10 lbs Dental Care, Regularly: Yes Physical Activity Frequency: Daily Seatbelt Use: always Sunscreen Use: Yes Review of Systems Review of Systems: All systems reviewed & are unremarkable except as noted in HPI & below Physical Exam Constitutional: WD/WN, vitals as above + acute distress Eyes: EOM intact bilaterally; no conjunctival abnormality ENMT: external ear and nose normal, oropharynx normal Neck: trachea midline, no thyromegaly normal visual inspection Respiratory: normal respiratory effort, lungs clear to auscultation no respiratory distress Cardiovascular: RRR, no murmur, no edema Gastrointestinal (Abdomen): Inspection/Auscultation: abdomen normal to inspection; abdomen not distended Musculoskeletal: no cyanosis or clubbing, extremities motor strength 5/5 Skin: no rashes, warm and dry Neurologic: moves all extremities and awake Psychiatric: Orientation: alert, oriented to person and cooperative Genitourinary: + CVA tenderness (Mild on right side) Results & Data Results & Data ([facility]) Vital Signs (Past 12 Hours) Vital Signs Temp Pulse Pulse Resp BP BP Pulse Ox 03/30/22 22:54 36.8 C 88 18 135/76 93 03/30/22 21:00 86 20 143/83 H 95 03/30/22 19:03 36.7 C 78 20 144/77 H 95 Code Status & VTE Plan VTE Prophylaxis Plan VTE Prophylaxis will be ordered: Yes PG Care Time/CCT Total # of Minutes Spent Total Time Spent with Patient: Total time spent is greater than 50% in coordination of care (as documented) at patient's floor/unit and/or counseling patient: Coding Level of Care Code 64807 Initial Inpt Care Lvl 3 Diagnoses Renal colic N23 Elevated troponin R77.8 Takotsubo cardiomyopathy I51.81 Hypertension I10 Depression F32.9 DVT prophylaxis Z29.9
[2022-03-30] MEDS ORDERED: rOPINIRole HCL 0.25 MG TABLET PO PRN (23:27)
[2022-03-30] MEDS ORDERED: SODIUM CHLORIDE 0.9% 1000ML 1,000 ML IV SCH (23:27)
[2022-03-30] MEDS ORDERED: ONDANSETRON INJ 2 MG/ML 2 ML VIAL IV PRN (23:27)
[2022-03-30] MEDS ORDERED: MoRPHine SULFATE 4 MG/ML 1 ML CARP\\VIAL IV PRN (23:27)
[2022-03-30] MEDS ORDERED: ACETAMINOPHEN 325 MG TAB PO PRN (23:27)
[2022-03-30] MEDS ORDERED: MoRPHine SULFATE 2 MG/ML CARP IV PRN (23:27)
[2022-03-30] MEDS ORDERED: diphenhydrAMINE Capsule 25 MG CAP PO PRN (23:27)
[2022-03-30] MEDS ORDERED: BACLOFEN 10 MG TAB PO PRN (23:27)
[2022-03-31] MEDS: cefTRIAXone SODIUM 2,000 MG in DEXTROSE 5% 50 ML IV SCH (00:50)
[2022-03-31] MEDS ORDERED: Heparin IV Adult Wt-Based Standard *NO* Bolus Protocol IV ONE (01:07)
[2022-03-31] MEDS ORDERED: HEPARIN SODIUM/DEXTROSE 25,000 UNITS/500 ML BAG IV SCH (01:30)
[2022-03-31 03:00] LABS: Basophils # (auto) 0.02 K/uL (0-0.2); Basophils % (auto) 0.2 %; Eosinophils # (auto) 0.11 K/uL (0-0.5); Eosinophils % (auto) 1.1 %; Hematocrit (blood only) 39.7 % (37-47); Immature Granulocytes # (auto) 0.02 K/uL (0.00-0.02); Immature Granulocytes % (auto) 0.2 %; Lymphocytes # (auto) 2.09 K/uL (1.2-3.4); Lymphocytes % (auto) 20.6 %; Mean Corpuscular Hemoglobin 30.3 pg (25-34); Mean Corpuscular Hgb Conc 32.7 g/dL (32-36); Mean Corpuscular Volume 92.5 fL (80-100); Mean Platelet Volume 10.6 fL (7.4-10.4); Monocytes # (auto) 1.28 K/uL (0.11-0.59); Monocytes % (auto) 12.6 %; Neutrophils # (auto) 6.65 K/uL (1.4-6.5); Neutrophils % (auto) 65.3 %; Platelet Count 274 K/uL (130-400); RDW Standard Deviation 43.8 fL (36.4-46.3); Red Blood Count 4.29 M/uL (4.2-5.4); White Blood Count 10.17 K/uL (4.8-10.8)
[2022-03-31 03:06] LABS: Partial Thromboplastin Ratio 0.9; Partial Thromboplastin Time 25.5 Seconds (21.0-31.0); Prothrombin Time 10.9 Seconds (9.0-12.0)
[2022-03-31] MEDS: METOPROLOL TARTRATE 25 MG TAB PO SCH ×3 (03:16→21:45)
[2022-03-31 03:24] LABS: Troponin I High Sensitivity 2709.1 pg/ml (0-14)
[2022-03-31] MEDS ORDERED: NITROGLYCERIN SL 0.4 MG/TAB TAB SL STA (05:46)
[2022-03-31 06:28] LABS: Base Excess VBG -0.2 mEq/L; HCO3 VBG 26 mmol/L; Oxygen Saturation VBG 94.7 %; PCO2 VBG 47 mmHg (38-50); PO2 VBG 71 mmHg; pH VBG 7.35 (7.36-7.41)
[2022-03-31 06:31] LABS: Basophils # (auto) 0.03 K/uL (0-0.2); Basophils % (auto) 0.3 %; Hematocrit (blood only) 38.6 % (37-47); Hemoglobin 12.7 g/dL (12.0-16.0); Immature Granulocytes # (auto) 0.02 K/uL (0.00-0.02); Immature Granulocytes % (auto) 0.2 %; Lymphocytes % (auto) 21.7 %; Mean Corpuscular Hemoglobin 30.6 pg (25-34); Mean Corpuscular Hgb Conc 32.9 g/dL (32-36); Mean Platelet Volume 10.7 fL (7.4-10.4); Monocytes # (auto) 1.44 K/uL (0.11-0.59); Monocytes % (auto) 14.2 %; Neutrophils # (auto) 6.23 K/uL (1.4-6.5); Neutrophils % (auto) 61.6 %; Platelet Count 284 K/uL (130-400); RDW Standard Deviation 44.4 fL (36.4-46.3); Red Blood Count 4.15 M/uL (4.2-5.4); White Blood Count 10.12 K/uL (4.8-10.8)
[2022-03-31 06:53] LABS: Albumin Globulin Ratio 1.4 (0.9-2); Albumin Level 3.7 gm/dl (3.4-5.0); BUN Creatinine Ratio 26.2 (10-20); Bilirubin,Total 0.7 mg/dl (0.2-1.0); Calcium 8.4 mg/dl (8.5-10.1); Creatinine Clr Calc Pharmacy 65.4 ml/min; Est GFR (African American) 78.8 ml/min; Globulin 2.6 gm/dl (2.5-4.0); Potassium 4.3 mmol/L (3.5-5.1); Total Protein 6.3 gm/dl (6.0-8.3)
--- NOTE | 2022-03-31 07:52 | Hospitalist Progress Note ---
Date of Service March 31, 2022 Assessment & Plan (1) Renal colic: Plan: Nephrolithiasis with associated hydroureteronephrosis -CT A/P in the ER showed "Mild to moderate right-sided hydroureteronephrosis secondary to an obstructing 8 mm calculus of the right uretero-vesicular junction." -Urology consulted -Stopped IV fluids, given CXR showing pulmonary edema. * Pain control: Tylenol 650 mg as needed * NPO since midnight for stent today * IV ceftriaxone; await urine culture results * Urology: No intervention scheduled at this time, as cardiac issues take precedence. Will likely schedule outpatient for elective stone treatment. * Follow AM BMP Takotsubo cardiomyopathy -Had an episode very similar to the present one in 11/2018 with nephrolithiasis followed by neck/jaw pain. EF was found to be 30-35%. She underwent catheteriza tion which demonstrated non-obstructive CAD. She was diagnosed with stress- induced cardiomyopathy. She had a LifeVest for some time and was on goal- directed therapy. EF improved to 50-55% in 04/2019, and most recent EF was 55- 60% on echo in 10/2020. -Presentation today concerningly similar to prior episode. -TTE (03/31/2022) EF = 25 to 30%; extensive LV wall motion abnormalities, with "apical and mid ventricular akinesis and ballooning, only the basal segments move normally." -Cardiac cath (03/31/2022): 60% ostial stenosis of bifurcating medium D1, 40% mid LAD after D1. Sluggish distal flow. No high risk disease to explain LV dysfunction, chest pain. Findings most consistent with Takotsubo cardiomyopathy. * Continue home ASA, beta-alexx (Coreg stopped on admission), ACEi, and spironolactone * Patient received 1 dose of IV Lasix 40 mg prior to heart cath for concern of fluid overload. * Recommended initiation of high intensity statin therapy (atorvastatin 40 mg every morning). Elevated troponin-downtrending -Initial troponin elevated to 120. EKG with many PVCs. Discussed with on-call cardiology; does not feel this is new LBBB. -Following TTE, heart cath, presentation consistent with Takotsubo cardiomyopathy. Hypertension -BP was 135/75 in the ER. * Continue above meds * Monitor BP Depression * Continue home duloxetine * Consider low-dose Ativan PRN for anxiety Code: Full Dispo: PCU FEN/GI: Heart healthy DVT Prophylaxis: Heparin drip PT/OT: (2) Elevated troponin: (3) Takotsubo cardiomyopathy: (4) Hypertension: (5) Depression: (6) DVT prophylaxis: Admission and Anticipated Discharge Date Admission Date: March 30, 2022 Supervising Physician Co-Signing Physician Notes Resident Physician Supervision Note: I independently interviewed and examined the patient and verified the avendaño history and physical, reviewed labs and image studies and agree with resident Dr. Ardon findings and care plan. Subjective Per nursing: pt complained of chest pressure in the AM with minimal exertion mary jane t improved after 10 minutes. At bedside, she describes increased chest pressure when attempting to use the restroom, as well as breathlessness with deep inhalation. Pt. would like Ativan, as it helped her chest pressure symptoms the last time. Review of Systems Review of Systems: All systems reviewed & are unremarkable except as noted in HPI & below Physical Exam Physical Exam: General: Well-appearing, alert, interactive, slightly anxious woman in no acute distress. HEENT: Normocephalic, atraumatic. EOM intact. Good conjugate gaze. Nares patent. Neck: Supple. No lymphadenopathy. Normal ROM. CV: Regular rate and rhythm. Normal S1 and S2. No murmurs gallops or rubs. No pedal edema. Respiratory: Normal respiratory effort. Lungs clear to auscultation bilaterally. No crackles, rhonchi, or wheezes. Abdomen: Soft, nondistended abdomen. No bruits heard on auscultation. No tenderness to deep palpation. No guarding or rebound. Extremities: Normal tone and ROM. Strength and sensation intact. Capillary refill <2 sec. 2+ dp equal bilaterally. Skin: Intact, without rashes, lesions, or erythema. Results & Data Results & Data ([facility]) Vital Signs (Past 12 Hours) Vital Signs Temp Pulse Pulse Pulse Resp BP BP 03/31/22 04:00 36.4 C L 85 18 114/76 03/31/22 01:47 91 H 03/30/22 23:00 36.5 C 84 18 03/30/22 22:54 36.8 C 88 18 135/76 03/30/22 21:00 86 20 BP Pulse Ox 03/31/22 04:00 95 03/31/22 01:47 03/30/22 23:00 109/76 97 03/30/22 22:54 93 03/30/22 21:00 143/83 H 95 Resident Activity Tracking Resident Involvement: Resident Care Provided Care Provided: Adult Hospital Medicine
--- NOTE | 2022-03-31 08:24 | XCELERA ---
[id number]
--- NOTE | 2022-03-31 08:42 | XRay Report ---
SINGLE VIEW CHEST CLINICAL HISTORY: Dyspnea and wheezing. FINDINGS: An AP, portable, upright chest radiograph is compared to study dated 03/30/2022. The heart i s enlarged noting atherosclerotic calcification of the thoracic aorta. There is pulmonary vascular co ngestion. Atelectasis is noted at the lung bases. 1 airspace opacities likely represent pulmonary danielle ma. No large pleural effusion or pneumothorax is identified. The skeletal structures are osteopenic. The bony thorax is grossly intact. IMPRESSION: 1. Cardiomegaly with pulmonary vascular congestion. This is new from yesterday. 2. Mild airspace opacities likely represent pulmonary edema. 3. No airspace consolidation or large pleural effusion is identified. ACT 112: Negative or not required by law. Electronically signed by: Abdulaziz Garcia M.D. 03/31/2022 8:41 AM
[2022-03-31] MEDS ORDERED: ENALAPRIL MALEATE 10 MG TAB PO SCH (09:00)
[2022-03-31] MEDS ORDERED: SPIRONOLACTONE 25 MG TAB PO SCH (09:00)
--- NOTE | 2022-03-31 09:08 | Electrocardiogram Report ---
Test Reason : Blood Pressure : / mmHG Vent. Rate : 099 BPM Atrial Rate : 080 BPM P-R Int : 152 ms QRS Dur : 100 ms QT Int : 384 ms P-R-T Axes : 075 -28 080 degrees QTc Int : 492 ms Poor data quality, interpretation may be adversely affected Sinus rhythm with frequent Premature ventricular complexes and a 3 beat atrial run Minor Non-specific intra-ventricular conduction delay Low voltage QRS Prolonged QT Abnormal ECG No previous ECGs available Confirmed by Ben Zabala ([id number]) on 03/31/2022 9:08:28 AM Referred By: REFERRED SELF Confirmed By:Ben Zabala
--- NOTE | 2022-03-31 09:09 | Electrocardiogram Report ---
Test Reason : Blood Pressure : / mmHG Vent. Rate : 080 BPM Atrial Rate : 079 BPM P-R Int : 150 ms QRS Dur : 104 ms QT Int : 396 ms P-R-T Axes : 075 -26 076 degrees QTc Int : 456 ms Poor data quality, interpretation may be adversely affected Sinus rhythm with frequent Premature ventricular complexes Left axis deviation Low voltage QRS Borderline ECG When compared with ECG of 30-MAR-2022 19:15, No significant change Confirmed by Ben Zabala ([id number]) on 03/31/2022 9:09:27 AM Referred By: REFERRED SELF Confirmed By:Ben Zabala
--- NOTE | 2022-03-31 09:13 | Electrocardiogram Report ---
Test Reason : Blood Pressure : / mmHG Vent. Rate : 089 BPM Atrial Rate : 089 BPM P-R Int : 150 ms QRS Dur : 114 ms QT Int : 360 ms P-R-T Axes : 086 -47 104 degrees QTc Int : 438 ms Sinus rhythm with frequent Premature ventricular complexes Left axis deviation Low voltage QRS Nonspecific T wave abnormality Lateral leads Abnormal ECG When compared with ECG of 30-MAR-2022 19:16, Nonspecific T wave abnormality, worse in Lateral leads Confirmed by Ben Zabala ([id number]) on 03/31/2022 9:13:11 AM Referred By: REFERRED SELF Confirmed By:Ben Zabala
--- NOTE | 2022-03-31 09:17 | Electrocardiogram Report ---
Test Reason : Blood Pressure : / mmHG Vent. Rate : 081 BPM Atrial Rate : 081 BPM P-R Int : 156 ms QRS Dur : 108 ms QT Int : 404 ms P-R-T Axes : 062 -36 140 degrees QTc Int : 469 ms Sinus rhythm with frequent Premature ventricular complexes Left axis deviation Low voltage QRS T-wave inversion in Anterolateral leads Abnormal ECG When compared with ECG of 31-MAR-2022 01:36, T-wave inversion in Anterolateral leads more pronounced Confirmed by Ben Zabala ([id number]) on 03/31/2022 9:16:48 AM Referred By: REFERRED SELF Confirmed By:Ben Zabala
[2022-03-31] MEDS ORDERED: LORazepam 2 MG/1 ML VIAL IV STA (09:27)
[2022-03-31] MEDS ORDERED: FUROSEMIDE 40 MG/4 ML VIAL IV ONE (09:28)
[2022-03-31] MEDS: FAMOTIDINE 10 MG TABLET PO SCH (09:57)
[2022-03-31] MEDS: ASPIRIN 81 MG ECTAB PO SCH (09:57)
[2022-03-31] MEDS ORDERED: LORazepam 0.5 MG in SYRINGE 0.25 ML IV ONE ×2 (10:00→20:00)
[2022-03-31 10:17] LABS: Partial Thromboplastin Ratio 1.9
[2022-03-31 10:26] LABS: Partial Thromboplastin Time 52.6 Seconds (21.0-31.0)
--- NOTE | 2022-03-31 10:35 | Cardiology Consultation ---
Date of Consultation March 31, 2022 Assessment & Plan (1) Elevated troponin: (2) Coronary artery disease: (3) Takotsubo cardiomyopathy: (4) Renal colic: 1. Elevated troponin: Presentation is consistent with Takotsubo cardiomyopathy and she had a similar presentation in 2019 in the setting of a kidney stone. She did have moderate nonobstructive CAD at that time, though, and therefore cannot completely rule out an ACS currently. Will therefore arrange for a cardiac catheterization later today for further evaluation of her coronary anatomy. 2. Cardiomyopathy: She has a history of a Takotsubo cardiomyopathy, and her current echo imaging is consistent with such with apical and mid ventricular akinesis and ballooning. Cardiac catheterization is being arranged to further evaluate her coronary anatomy. She will also need medical therapy for her cardiomyopathy including more aggressive beta blockade if the cardiomyopathy is indeed a Takotsubo. She was given IV fluids overnight and currently has evidence of pulmonary vascular congestion. Would therefore recommend administration of IV Lasix for diuresis prior to the cath. 4. Coronary artery disease: 40% LAD, 40% D1, and 60% ramus intermedius stenosis in November 2018. Cardiac catheterization is being arranged given her symptoms, elevated troponin, ECG abnormalities, and abnormal echo. Continue aspirin and beta alexx therapy. Would also recommend initiation of high intensity statin therapy. Further recommendations pending the results of the cardiac cath later today. Patient was seen and discussed with Dr. Iqbal. History of Present Illness History of Present Illness Patient is a 76-year-old female with a past medical history significant for Takotsubo cardiomyopathy, nonobstructive CAD, hypertension, hypercholesterolemia, GERD, nephrolithiasis s/p lithotripsy, spinal stenosis, and depression who presented to the ER last evening with right flank pain and bilateral neck pain. Her cardiac history began in November 2018. Patient was admitted to [facility] with a kidney stone. She developed chest, neck, and jaw pain and she had an elevated troponin. She underwent a cardiac catheterization which revealed nonobstructive disease (40% LAD, 40% D1, 60% ramus intermedius) but a left ventriculogram noted a large akinetic apex with ejection fraction of 30%. She was diagnosed with the Takotsubo cardiomyopathy and started on carvedilol, r amipril, and spironolactone.Repeat echo in April 2019 demonstrated low normal LV systolic function, and an echo performed in October 2020 demonstrated normal LV systolic function with an EF of 55-60%. In regards to her current admission, patient states that she developed severe right flank pain last evening a little after 5 pm. She had associated nausea with the discomfort but no vomiting. She then developed bilateral neck pain. She proceeded to the ER for further evaluation, and CT of abdomen/pelvis showed the patient had an obstructing 8 mm kidney stone on the right side at the ureterovesical junction causing hydronephrosis. Initial high sensitivity troponin was 120, but has trended up to 2709. Echocardiogram shows mildly dilated LV with severely reduced systolic function, EF 25-30%. There are extensive wall motion abnormalities with apical and mid ventricular akinesis and ballooning with only basal segments moving normally. The patient states today that she is feeling very poorly. She developed significant shortness of breath and chest tightness earlier this morning and was given sublingual nitro with some improvement of her chest tightness. She continues to feel short of breath and states that she cannot even stand up without significant dyspnea. She still has a tightness in her chest, especially when trying to take a deep breath. She denies any neck or jaw pain, and her flank pain has also resolved. She states that she is very sweaty. She denies palpitations, edema, or lightheadedness. She continues to note hematuria but denies melena or hematochezia. Social history She is a Quit tobacco use in 2017, 40 pack year history Rare alcohol Family history Mother at 67 from unknown causes Father at 51 from unknown causes Allergies Allergy/AdvReac Type Severity Reaction Status Date / Time iodine Allergy Unknown Unknown Verified 03/30/22 19:44 paroxetine Allergy Unknown Unknown Verified 03/30/22 19:44 Penicillins Allergy Unknown Unknown Verified 03/30/22 19:44 ampicillin AdvReac Intermediate Hives Verified 03/30/22 19:44 fluoxetine AdvReac Intermediate hand pain Verified 03/30/22 19:44 Sulfa (Sulfonamide AdvReac Intermediate Nausea Verified 03/30/22 19:44 Antibiotics) Home Medications Medication Instructions Recorded Confirmed Type aspirin 81 mg tablet,delayed 81 mg PO DAILY 10/18/19 03/30/22 History release (Adult Low Dose Aspirin) ropinirole 0.5 mg tablet 0.25 mg PO HS PRN #30 tab 07/16/20 03/30/22 Rx baclofen 10 mg tablet 10 mg PO BID PRN 08/14/20 03/30/22 History magnesium 250 mg tablet 250 mg PO DAILY 08/14/20 03/30/22 History cholecalciferol (vitamin D3) 50 50 mcg PO DAILY #30 cap 02/25/21 03/30/22 Rx mcg (2,000 unit) capsule cetirizine 10 mg tablet 10 mg PO DAILY PRN 07/23/21 03/30/22 History diphenhydramine HCl 25 mg capsule 25 mg PO DAILY PRN cap 07/23/21 03/30/22 History famotidine 10 mg tablet 10 mg PO DAILY 07/23/21 03/30/22 History simethicone 125 mg capsule (Gas-X 125 mg PO DAILY PRN 07/23/21 03/30/22 History Extra Strength) ramipril 5 mg capsule 5 mg PO DAILY #90 cap 11/12/21 03/30/22 Rx spironolactone 25 mg tablet 25 mg PO DAILY #90 tab 11/12/21 03/30/22 Rx carvedilol 6.25 mg tablet (Coreg) 6.25 mg PO QPM 03/30/22 03/30/22 History duloxetine 30 mg capsule,delayed 30 mg PO QPM 03/30/22 03/30/22 History release (Cymbalta) hydrocodone 5 mg-acetaminophen 325 1 tab PO DIRECTED PRN 03/30/22 03/30/22 History mg tablet Patient History Medical History (Updated 03/30/22 @ 23:14 by Yoshi Storey MD) ADD (attention deficit disorder) Cervical spinal stenosis Coronary artery disease (11/2018) nonobstructive Depression History of basal cell carcinoma History of non-ST elevation myocardial infarction (NSTEMI) (11/26/18) Lumbar spinal stenosis Restless leg syndrome Takotsubo cardiomyopathy (11/2018) Vitamin D deficiency Surgical History History of hysteroscopy History of Mohs micrographic surgery for skin cancer Nose for BCC History of wisdom tooth extraction Hx of breast lump removal bilateral Hx of lithotripsy S/P dilatation and curettage Family History Father Hypertension Coronary heart disease Hx of CABG Stroke Son , Tragic loss No problems noted. Mother Stroke Heart valve replaced Rheumatic fever Denies family history of Ovarian cancer Prostate cancer Myocardial infarction Breast cancer Colorectal cancer Social History Smoking Status: Former smoker Tobacco Type: Cigarettes Age Started Using Tobacco: 29; Age Quit Using Tobacco: 66; packs per day: 1; Number of Years Since Quit: 9; Second Hand Exposure: No; Do You Dip or Chew Tobacco: No; Hx Alcohol Use: Yes Alcohol type: wine and hard liquor Alcohol Intake Frequency: Monthly or Less Hx Substance Use: No Preferred Language: Greek Communication Ability: Effective Visual Impairment: Limited Hearing Ability: Normal Computer Instructor Required: No Beliefs That Will Affect Care: None marital status: / Current Living Situation: Alone 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; 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 Other Information That Helps Us Care for You: No Feels Safe at Home: Yes Safety Concerns: Feels Safe At This Time Childhood Exposure to Second-Hand Smoke: Yes caffeine: Yes (Coffee x 2 per day.) during the past year weight has: increased > 10 lbs Dental Care, Regularly: Yes Physical Activity Frequency: Daily Seatbelt Use: always Sunscreen Use: Yes Assistive Devices: Denture - Upper, Denture - Lower and Glasses Assistive Devices Comment: contacts Review of Systems Review of Systems: All systems reviewed & are unremarkable except as noted in Subjective Physical Exam Physical Exam: Constitutional: Alert, oriented, diaphoretic and visibly un comfortable. Oxygen via nasal cannula HEENT: Head is atraumatic and normocephalic. EOMs intact. Sclera non-icteric. Face is symmetric. No perioral cyanosis. Mucous membranes moist Neck: No appreciable JVD Pulmonary: Normal respiratory effort, bibasilar crackles, otherwise clear to auscultation throughout Cardiac: Regular rate and rhythm, normal S1 and S2, no gallops, no rubs, no murmurs Extremities: No edema. No clubbing or cyanosis. Pulses 2+ and symmetric Abdomen: Normal bowel sounds, soft, non-tender, no abdominal masses palpated Skin: Normal skin color, turgor, and pigmentation. No rash or skin lesions Neurological: Oriented to person, place, and time Results & Data ([facility]) Vital Signs (Past 12 Hours) Vital Signs Temp Pulse Pulse Pulse Resp BP BP 03/31/22 08:00 98.1 F 71 16 116/81 03/31/22 04:00 97.5 F L 85 18 114/76 03/31/22 01:47 91 H 03/30/22 23:00 97.7 F 84 18 03/30/22 22:54 98.2 F 88 18 135/76 BP Pulse Ox 03/31/22 08:00 94 03/31/22 04:00 95 03/31/22 01:47 03/30/22 23:00 109/76 97 03/30/22 22:54 93 Laboratory Results Laboratory Results WBC 10.12 K/uL (4.8-10.8) 03/31/22 06:08 RBC 4.15 M/uL (4.2-5.4) L 03/31/22 06:08 Hgb 12.7 g/dL (12.0-16.0) 03/31/22 06:08 Hct 38.6 % (37-47) 03/31/22 06:08 MCV 93.0 fL (80-100) 03/31/22 06:08 MCH 30.6 pg (25-34) 03/31/22 06:08 MCHC 32.9 g/dL (32-36) 03/31/22 06:08 RDW Std Deviation 44.4 fL (36.4-46.3) 03/31/22 06:08 RDW Coeff of Nadia 13.0 % (11.5-14.5) 03/31/22 06:08 Plt Count 284 K/uL (130-400) 03/31/22 06:08 MPV 10.7 fL (7.4-10.4) H 03/31/22 06:08 Immature Gran % (Auto) 0.2 % 03/31/22 06:08 Neut % (Auto) 61.6 % 03/31/22 06:08 Lymph % (Auto) 21.7 % 03/31/22 06:08 Todd % (Auto) 14.2 % 03/31/22 06:08 Eos % (Auto) 2.0 % 03/31/22 06:08 Baso % (Auto) 0.3 % 03/31/22 06:08 Neut # (Auto) 6.23 K/uL (1.4-6.5) 03/31/22 06:08 Lymph # (Auto) 2.20 K/uL (1.2-3.4) 03/31/22 06:08 Todd # (Auto) 1.44 K/uL (0.11-0.59) H 03/31/22 06:08 Eos # (Auto) 0.20 K/uL (0-0.5) 03/31/22 06:08 Baso # (Auto) 0.03 K/uL (0-0.2) 03/31/22 06:08 Immature Gran # (Auto) 0.02 K/uL (0.00-0.02) 03/31/22 06:08 PT 10.9 Seconds (9.0-12.0) 03/31/22 01:24 INR 1.0 (0.9-1.1) 03/31/22 01:24 APTT 25.5 Seconds (21.0-31.0) 03/31/22 01:24 PTT Ratio 0.9 03/31/22 01:24 VBG pH 7.35 (7.36-7.41) L 03/31/22 06:08 VBG pCO2 47 mmHg (38-50) 03/31/22 06:08 VBG pO2 71 mmHg 03/31/22 06:08 VBG HCO3 26 mmol/L 03/31/22 06:08 VBG O2 Saturation 94.7 % 03/31/22 06:08 VBG Base Excess -0.2 mEq/L 03/31/22 06:08 Sodium 136 mmol/L (136-145) 03/31/22 06:08 Potassium 4.3 mmol/L (3.5-5.1) 03/31/22 06:08 Chloride 106 mmol/L (98-107) 03/31/22 06:08 Carbon Dioxide 24 mmol/L (21-32) 03/31/22 06:08 Anion Gap 6 (3-11) 03/31/22 06:08 BUN 22 mg/dl (6-23) 03/31/22 06:08 Creatinine 0.84 mg/dl (0.6-1.2) 03/31/22 06:08 Est Cr Clr Drug Dosing 65.4 ml/min 03/31/22 06:08 Est GFR ( Amer) 78.8 ml/min 03/31/22 06:08 Est GFR (Non-Af Amer) 68.0 ml/min 03/31/22 06:08 BUN/Creatinine Ratio 26.2 (10-20) H 03/31/22 06:08 Glucose 136 mg/dl (70-99(Fasting)) H 03/31/22 06:08 Calcium 8.4 mg/dl (8.5-10.1) L 03/31/22 06:08 Magnesium 2.0 mg/dl (1.7-2.4) 03/31/22 Unknown Total Bilirubin 0.7 mg/dl (0.2-1.0) 03/31/22 06:08 AST 22 U/L (13-39) 03/31/22 06:08 ALT 12 U/L (7-52) 03/31/22 06:08 Alkaline Phosphatase 63 U/L (34-104) 03/31/22 06:08 Troponin I High Sens 2709.1 pg/ml (0-14) H* D 03/31/22 Unknown B-Natriuretic Peptide 518 pg/ml (0-100) H 03/31/22 06:08 Total Protein 6.3 gm/dl (6.0-8.3) 03/31/22 06:08 Albumin 3.7 gm/dl (3.4-5.0) 03/31/22 06:08 Globulin 2.6 gm/dl (2.5-4.0) 03/31/22 06:08 Albumin/Globulin Ratio 1.4 (0.9-2) 03/31/22 06:08 Lipase 18 U/L (11-82) 03/30/22 19:32 Urine Color [place] 03/30/22 19:34 Urine Appearance Cloudy (Clear) A 03/30/22 19:34 Urine pH 5.5 (4.5-7.5) 03/30/22 19:34 Ur Specific [place] 1.020 (1.000-1.030) 03/30/22 19:34 Urine Protein 3+ (Negative) H 03/30/22 19:34 Urine Glucose (UA) Negative (Negative) 03/30/22 19:34 Urine Ketones Negative (Negative) 03/30/22 19:34 Urine Blood 3+ (Negative) H 03/30/22 19:34 Urine Nitrite Negative (Negative) 03/30/22 19:34 Urine Bilirubin Negative (Negative) 03/30/22 19:34 Urine Urobilinogen Negative (Negative) 03/30/22 19:34 Ur Leukocyte Esterase 2+ (Negative) H 03/30/22 19:34 Urine WBC (Auto) >30 /hpf (0-5) H 03/30/22 19:34 Urine RBC (Auto) >30 /hpf (0-4) H 03/30/22 19:34 U Hyaline Cast (Auto) 1-5 /lpf (0-5) 03/30/22 19:34 U Epithel Cells (Auto) >30 /lpf (0-5) H 03/30/22 19:34 Urine Bacteria (Auto) 1+ (Negative) H 03/30/22 19:34 SARS-CoV-2, RNA, NAAT NEGATIVE (NEGATIVE) 03/30/22 21:30 Diagnostic Findings Abdomen/Pelvis CT 03/30/22 19:[address] WITHOUT CONTRAST CT DOSE: 748.67 mGy.cm HISTORY: Acute right-sided flank pain in a patient with history of kidney stones r flank pain TECHNIQUE: Multiaxial CT images of the abdomen and pelvis were performed without contrast. A dose lowering technique was utilized adhering to the principles of ALARA. COMPARISON STUDY: CT abdomen 01/20/2010 FINDINGS: Mitral annular calcifications. Mild bibasilar atelectasis. Partially imaged 3 mm nodule the basal right lower lobe on image 1 of series 3. Mild intralobular septal thickening of the lung bases. There is no pneumatosis or pneumoperitoneum. The unenhanced spleen, pancreas, gallbladder and adrenal glands are unremarkable. There are a few hypodense foci within the liver suggestive of cysts measuring up to 2 cm within the right hepatic lobe. The 2 cm lesion has increased in size from 2009. Numerous nonobstructing calculi of the right kidney measure up to 7 mm. There is mild to moderate right-sided hydroureteronephrosis secondary to an obstructing 8 x 6 x 5 mm calculus of the distal right ureter just proximal to the ureterovesicular junction. Numerous large not affecting calculi of the left kidney measure up to approximately 2 cm. There is a 1.6 cm calculus of the left renal pelvis. Mild associated pelviectasis with adjacent inflammatory stranding. Partially decompressed urinary bladder. 2.1 cm hypodense structure abutting the left fundal uterus is likely benign, previously 1.1 cm. Atherosclerosis of the aorta. There is no lymphadenopathy identified. No bowel obstruction or bowel wall thickening. Colonic diverticulosis. Noninflamed appendix. Mild colonic fecal retention. Tiny fat filled periumbilical hernia. Lumbar levoscoliosis. Degenerative changes of the spine, pelvis and hips. IMPRESSION: 1. Mild to moderate right-sided hydroureteronephrosis secondary to an obstructing 8 mm calculus of the right ureterovesicular junction. 2. Numerous large bilateral renal calculi. This includes a 1.6 cm calculus of the left renal pelvis resulting in mild associated pelviectasis without nasreen hydronephrosis. 3. No bowel obstruction or bowel wall thickening. Noninflamed appendix. 4. Additional findings as above. Chest X-Ray 03/31/22 05:16 SINGLE VIEW CHEST CLINICAL HISTORY: Dyspnea and wheezing. FINDINGS: An AP, portable, upright chest radiograph is compared to study dated 03/30/2022. The heart is enlarged noting atherosclerotic calcification of the thoracic aorta. There is pulmonary vascular congestion. Atelectasis is noted at the lung bases. 1 airspace opacities likely represent pulmonary edema. No large pleural effusion or pneumothorax is identified. The skeletal structures are osteopenic. The bony thorax is grossly intact. IMPRESSION: 1. Cardiomegaly with pulmonary vascular congestion. This is new from yesterday. 2. Mild airspace opacities likely represent pulmonary edema. 3. No airspace consolidation or large pleural effusion is identified. Echocardiogram 03/31/2022: Mildly dilated LV with severely reduced systolic function, EF 25-30%. There are extensive wall motion abnormalities with apical and mid ventricular akinesis and ballooning with only basal segments moving normally. Mild MR. Elevated RVSP of 30-40 mmHg. ECG 03/30/22 19:15: Sinus rhythm with frequent PVCS and a 3 beat run of atrial tachycardia. Minor nonspecific intraventricular conduction delay. Low voltage QRS. Left axis deviation. ECG 03/30/22 22:09: Sinus rhythm with frequent PVCs. Minor nonspecific intraventricular conduction delay. Low voltage QRS. Left axis deviation. ECG 03/31/22 1:36: Sinus rhythm with frequent PVCs. Minor nonspecific intraventricular conduction delay. Low voltage QRS. Left axis deviation. Nonspecific T wave abnormality in lateral leads. ECG 03/31/22 5:36: Sinus rhythm with frequent PVCs. Minor nonspecific intraventricular conduction delay. Low voltage QRS. Left axis deviation. T wave inversion in lateral leads. Telemetry monitoring: Sinus rhythm with rates in the 70s-90s. PVCs, at times in a bigeminy pattern. PG Care Time/CCT Total # of Minutes Spent Total Time Spent with Patient: Total time spent is greater than 50% in coordination of care (as documented) at patient's floor/unit and/or counseling patient: Coding Level of Care Code 65024 Initial Inpt Care Lvl 3 Diagnoses Elevated troponin R77.8 Coronary artery disease I25.10 Takotsubo cardiomyopathy I51.81 Renal colic N23
--- NOTE | 2022-03-31 11:28 | Urology Progress Note ---
Date of Service March 31, 2022 Assessment & Plan (1) Acute flank pain: (2) Right ureteral calculus: Plan: 76yo F admitted with acute onset of right flank pain, diaphoresis, and shortness of breath and found to have an obstructing 8mm distal right ureteral stone as we ll as elevated troponin. Due to her cardiac history and elevated troponin she is undergoing cardiac evaluation. - Plan of care reviewed with Dr. Newman, on-call urologist. - Pt afebrile, hemodynamically stable. - Labs reviewed- No leukocytosis and renal function normal. - Urine culture is pending, on IV Ceftriaxone. - No intervention planned at this time. - She is currently undergoing work-up for her cardiac issues and is scheduled for a cardiac cath later today. - Her cardiac issues take precedence at this time and we will revisit possible stent placement pending the results of the cardiac cath and patient status. - If she remains stable and asymptomatic from a standpoint, can also arrange elective procedure for stone treatment as an outpatient. - Continue supportive care and antibiotic therapy. - Urology will continue to follow. Admission and Anticipated Discharge Date Admission Date: March 30, 2022 Supervising Physician Co-Signing Physician Notes No acute need for urologic intervention. Cardiac work up should be completed first. Depending on cardiology findings and recommendations, can discuss stenting prior to discharge or outpatient evaluation for eventual stone treatment. Subjective Pt examined at bedside this AM. Awake, sitting up in bed on arrival. States her right flank pain has resolved. Denies fever or chills. No nausea or vomiting at present. Notes some hematuria and mild dysuria with voiding. Reports she is going for cardiac cath later today. Has been NPO. Review of Systems Constitutional: as per Subjective / HPI Cardiovascular: as per Subjective / HPI Genitourinary: as per Subjective / HPI Physical Exam Constitutional: no acute distress Respiratory: no respiratory distress and no labored breathing Oxygen via nasal cannula Neurologic: moves all extremities and awake Psychiatric: Orientation: alert, oriented x 3 and cooperative Results & Data ([facility]) Vital Signs (Past 12 Hours) Vital Signs Temp Pulse Pulse Resp BP Pulse Ox 03/31/22 08:00 36.7 C 71 16 116/81 94 03/31/22 04:00 36.4 C L 85 18 114/76 95 03/31/22 01:47 91 H PG Care Time/CCT Total # of Minutes Spent Total Time Spent with Patient: Total time spent is greater than 50% in coordination of care (as documented) at patient's floor/unit and/or counseling patient: Coding Level of Care Code 52993 Subseq Hosp Care Lvl 2 Diagnoses Acute flank pain R10.9 Right ureteral calculus N20.1
[2022-03-31] MEDS ORDERED: MIDAZOLAM HCL 1 MG/ML 2ML VIAL ONE (12:46)
[2022-03-31] MEDS ORDERED: HEPARIN (PORCINE) 1000 UNIT/ML 10 ML (CATH LAB USE ONLY) ONE (12:46)
[2022-03-31] MEDS ORDERED: niCARdipine HCL INJ 2.5 MG/ML 10 ML AMP ONE (12:46)
[2022-03-31] MEDS ORDERED: fentaNYL citrate 100 MCG/2 ML VIAL ONE (12:46)
[2022-03-31] MEDS ORDERED: NITROGLYCERIN/D5W 100MCG/ML 20ML SYR ONE (12:47)
[2022-03-31] MEDS ORDERED: diphenhydrAMINE 50 MG/ML VIAL ONE (12:48)
[2022-03-31] MEDS ORDERED: methylPREDNISolone 125 MG/2 ML VIAL ONE (12:48)
[2022-03-31] MEDS ORDERED: FAMOTIDINE 20MG/5ML IV PUSH IV ONE (12:49)
--- NOTE | 2022-03-31 12:58 | Pre Anesthesia Assessment ---
Date of Service March 31, 2022 Pre Sedation Assessment Vital Signs Temp Pulse Pulse Pulse Resp BP BP 03/31/22 11:35 98.2 F 75 16 104/68 03/31/22 08:00 98.1 F 71 16 116/81 03/31/22 04:00 97.5 F L 85 18 114/76 03/31/22 01:47 91 H 03/30/22 23:00 97.7 F 84 18 03/30/22 22:54 98.2 F 88 18 135/76 03/30/22 21:00 86 20 03/30/22 19:03 98.1 F 78 20 144/77 H BP Pulse Ox 03/31/22 11:35 90 03/31/22 08:00 94 03/31/22 04:00 95 03/31/22 01:47 03/30/22 23:00 109/76 97 03/30/22 22:54 93 03/30/22 21:00 143/83 H 95 03/30/22 19:03 95 Cardiovascular RRR, no murmur, no edema Respiratory normal respiratory effort, lungs clear to auscultation Pre-Sedation Airway Assessment Smoking Status: Former smoker Hx Sleep Apnea: No Hx Difficult Intubation: No Short, Thick Neck: No Thyromental Distance: > or= 3.5 Finger Breadths ASA: ASA3 Procedure Planning Contraindications for Sedation: none Current Medications Reviewed: Yes Notes The planned sedation has been discussed with the patient. Informed Consent was obtained. I have identified the patient, determined the appropriateness of sedation and have assessed the patient immediately prior to the procedure. All medicine(s) and interventions are by my order.
[2022-03-31] MEDS ORDERED: ATORVASTATIN 40 MG TAB PO ONE (13:00)
--- NOTE | 2022-03-31 13:38 | Post Anesthesia Assessment ---
Date of Service March 31, 2022 Post Sedation Assessment Vital Signs Temp Pulse Pulse Pulse Resp BP BP 03/31/22 11:35 98.2 F 75 16 104/68 03/31/22 08:00 98.1 F 80 71 16 116/81 03/31/22 04:00 97.5 F L 85 18 114/76 03/31/22 01:47 91 H 03/30/22 23:00 97.7 F 84 18 03/30/22 22:54 98.2 F 88 18 135/76 03/30/22 21:00 86 20 03/30/22 19:03 98.1 F 78 20 144/77 H BP Pulse Ox 03/31/22 11:35 90 03/31/22 08:00 94 03/31/22 04:00 95 03/31/22 01:47 03/30/22 23:00 109/76 97 03/30/22 22:54 93 03/30/22 21:00 143/83 H 95 03/30/22 19:03 95 Recovery Score Activity: Moves 4 extremities Respiration: Deep Breath/Cough Circulation: +/-20% PreAnes Value Consciousness: Fully Awake Oxygen Saturation: O2 needed for >90% Discharge Sedation Level of Care: Fast Track Phase II Post Sedation Plan On clinical assessment, the patient appears to have tolerated the sedation without complications. Patient is recovering as anticipated. Patient will continue to be monitored by nursing and may be discharged when sedation discharge criteria are met per below protocol. Upon Completions of procedure up to 15 minutes continue every 5 minute vital signs and the P.A.R. score; then discharge to a Phase I or Fast Track to Phase II per the following guidelines: * Discharge Patient to appropriate Phase II area if PAR is 8 or greater or return to pre- procedure baseline. The post - procedure orders will be as directed. * If PAR score is less than 8 or not return to pre-procedure baseline then patient will follow Phase I monitoring till PAR is reached for Phase II. The Phase I may be done in procedure room or may call to secure a Phase I area. * If naloxone or flumazenil are used for reversal, hold in Phase I for continued monitoring from when last reversal dose was given for a minimum of 60 minutes or longer pending the nurse and/or physician discretion of patient condition before discharge to Phase II. Please call the Sedation Physician to re-evaluate and complete post-note for discharge to Phase II area. Do NOT discharge from procedure sedation or Phase 1 until post- sedation evaluation note is complete by procedure /sedation MD Sedation Discharge Instructions to be given to the patient at discharge to home.
--- NOTE | 2022-03-31 13:50 | Post Operative Brief Note ---
Cardiology Brief Post Op Date of Surgery March 31, 2022 Pre & Post Diagnosis Coronary artery disease Procedure Cardiac cath Oil Exploration Engineer Eduardo Vernon MD Software Product Specialist [place] Estimated Blood Loss 10 Findings Consistent with Post-Op Diagnosis 60% ostial stenosis of bifurcating medium D1 40% mid LAD after D1. Sluggish distal flow No high risk disease to explain LV dysfunction, chest pain. Findings most consistent with Takotsubo's cardiomyopathy. Complications none Disposition Accompanied Patient To Recovery: Yes Disposition: Recovery Room Overlapping Procedure I was present for: the critical portions of procedure. I was immediately available: during the entire case. Back up surgeon: was not required during procedure.
[2022-03-31] MEDS ORDERED: CETIRIZINE HCL 10 MG TABLET PO PRN (14:14)
[2022-03-31] MEDS ORDERED: HYDROCODONE/ACETAMOPHEN 5/325MG TAB PO PRN ×2 (14:14→15:45)
[2022-03-31] MEDS ORDERED: SIMETHICONE 40 MG/0.6 ML 30ML PO PRN (14:41)
[2022-03-31 16:51] LABS: Partial Thromboplastin Ratio 0.9; Partial Thromboplastin Time 25.9 Seconds (21.0-31.0)
--- NOTE | 2022-03-31 17:42 | Cardiac Catheterization ---
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 Cardiac Status Clinical evaluation leading to the procedure CAD Presenation: Non STEMI Anginal Classification: CCS IV Diagnostic Physicians Name: Eduardo Vernon MD Closure Device Recommendations: Medical Therapy and/or Counseling Cardiac Cath Procedure Full Procedure Date March 31, 2022 Pre-Procedure Diagnosis Pre-Procedure Diagnosis: Non STEMI AUC Score AUC Score: 7 Post-Procedure Diagnosis Post-Procedure Diagnosis: Moderate CAD and Normal Intracardiac Pressures Procedure(s) Performed Procedure(s) Performed: Coronary Angiography and Left Heart Cath Special Education Instructor Eduardo Vernon MD House Manager(s) [place] Estimated Blood Loss Estimated Blood Loss: 15 Medication(s) Medication(s): Fentanyl, Heparin, Lidocaine 1%, Nicardipine, Nitroglycerin and Versed Summary of Findings Indication: Elevated troponin. History of moderate CAD and prior Takotsubo's Access: 6 Fr right radial artery Catheters: [place], diagnostic JR4 Findings: LM -Short, no significant disease LAD -large caliber, 40% mid stenosis after takeoff of D1. Distal vessel angulated with sluggish flow as wraps around apex. Medium D1 with 60% ostial stenosis prior to bifurcation. Circumflex -medium caliber, codominant, no significant disease. Medium OM1, OM 2 without disease. RCA -medium caliber, codominant, no significant disease LVEDP -33 Arterial Closure: TR band Summary: 1. Moderate nonobstructive coronary artery disease -40% mid LAD after takeoff of D1 60% ostial medium D1 2. Elevated intracardiac filling pressure (LVEDP 33). Recommendations: Findings consistent with nonischemic cardiomyopathy and echo more suggestive of recurrent Takotsubo's cardiomyopathy. Guideline directed medical therapy for cardiomyopathy. Gentle diuresis Continued ASCVD risk factor modification Hemodynamics Rest Ao:: 107/73/105 Final Ao: 113/68/94 LV: 113/33 Recommendations Recommendations: Medical Therapy and/or Counseling Specimens Specimens: None Radiation Exposure (mGy) 1201 Contrast (mls) 40 Anesthesia moderate 8965-2184 Procedural Complication(s) None Disposition PCU I attest to the content of the Intraoperative Record and any orders documented therein. Any exceptions are noted below. RollerG Card Cath Procedure Codes Cardiac Catheterization Procedure 1: Cardiovascular Cath Procedures: 02340 Coronaries and LHC (+/-LV) Moderate Sedation Procedure 1: Sedation/Anesthesia: 41185 Mod Sedation by the same physician;Init15 Min Child Age 5 & Up PG Care Time/CCT Total # of Minutes Spent Total Time Spent with Patient: Total time spent is greater than 50% in coordination of care (as documented) at patient's floor/unit and/or counseling patient:
[2022-03-31] MEDS ORDERED: carvediloL 6.25 MG TAB PO SCH (21:00)
[2022-03-31] MEDS ORDERED: DULoxetine HCL 30 MG CAP PO SCH (21:00)
[2022-04-01] MEDS: cefTRIAXone SODIUM 2,000 MG in DEXTROSE 5% 50 ML IV SCH (01:00)
[2022-04-01 06:37] LABS: Partial Thromboplastin Ratio 0.9; Partial Thromboplastin Time 24.8 Seconds (21.0-31.0)
--- NOTE | 2022-04-01 07:53 | Discharge Summary ---
Date of Service April 01, 2022 Admission HPI Per Admitting Provider 76yo F w/ hx of Takasubo's cardiomyopathy who presents with right kidney stone. The patient was in her normal state of health until about 5:15pm today. She had acute onset right-sided flank pain with nausea, diaphoresis, and shortness of breath. The pain was 10/10 and wrapped around the right side of her abdomen. There were no alleviating factors. About 15 minutes after that, she notes she had some pain in the lower jaw area. She specifically denies chest pain, arm pain, or radiation from that area, but says it was just in the under side of jaw (bilaterally). She denies palpitations, denies lightheadedness, denies dizziness, denies any vomiting with this pain. However, she felt an increasing sense of panic, and that's when she decided to come to the ER. In the ER, she received a total of 10 mg of morphine as well as Toradol which she says has resolved her right flank pain at this time, but she notes that she still has some pain in the under side of her jaw which also makes her feel short of breath. Admission Exam Per Admitting Provider Constitutional: WD/WN, vitals as above + acute distress D Eyes: EOM intact bilaterally; no conjunctival abnormality ENMT: external ear and nose normal, oropharynx normal Neck: trachea midline, no thyromegaly normal visual inspection Respiratory: normal respiratory effort, lungs clear to auscultation no respiratory distress Cardiovascular: RRR, no murmur, no edema Gastrointestinal (Abdomen): Inspection/Auscultation: abdomen normal to inspection; abdomen not distended Musculoskeletal: no cyanosis or clubbing, extremities motor strength 5/5 Skin: no rashes, warm and dry Neurologic: moves all extremities and awake Psychiatric: Orientation: alert, oriented to person and cooperative Genitourinary: + CVA tenderness (Mild on right side) Principal Diagnosis Takotsubo cardiomyopathy, nephrolithiasis Discharge Exam General: Well-appearing, alert, interactive, slightly anxious woman in no acute distress. HEENT: Normocephalic, atraumatic. EOM intact. Good conjugate gaze. Nares patent. Neck: Supple. No lymphadenopathy. Normal ROM. CV: Regular rate and rhythm. Normal S1 and S2. No murmurs gallops or rubs. No pedal edema. Respiratory: Normal respiratory effort. Lungs clear to auscultation bilaterally. No crackles, rhonchi, or wheezes. Abdomen: Soft, nondistended abdomen. No bruits heard on auscultation. No tenderness to deep palpation. No guarding or rebound. Extremities: Normal tone and ROM. Strength and sensation intact. Capillary refill <2 sec. 2+ dp equal bilaterally. Skin: Intact, without rashes, lesions, or erythema. Discharge Data Allergies Allergy/AdvReac Type Severity Reaction Status Date / Time iodine Allergy Unknown Unknown Verified 03/30/22 19:44 paroxetine Allergy Unknown Unknown Verified 03/30/22 19:44 Penicillins Allergy Unknown Unknown Verified 03/30/22 19:44 ampicillin AdvReac Intermediate Hives Verified 03/30/22 19:44 fluoxetine AdvReac Intermediate hand pain Verified 03/30/22 19:44 Sulfa (Sulfonamide AdvReac Intermediate Nausea Verified 03/30/22 19:44 Antibiotics) Consultations 03/30/22 20:59 ED Decision to Admit Stat 03/30/22 23:27 Consult Urology Routine 03/31/22 01:08 Consult Cardiology Routine Procedures Performed Operation Date: 03/31/22 12:00 Actual Procedures p Cineradiography w/Routine Exam - Jordy Vernon MD p Cath, Left with Cors and Vent - Jordy Vernon MD Ordered Studies 03/30/22 19:10 CT abd pelvis wo con Stat 03/31/22 13:00 CL Cath Imgs for PACS use only Routine Hospital Course (1) Renal colic: Nephrolithiasis with associated hydroureteronephrosis -CT A/P in the ER showed "Mild to moderate right-sided hydroureteronephrosis secondary to an obstructing 8 mm calculus of the right uretero-vesicular junction." -Urology: No intervention scheduled at this time, as cardiac issues take precedence. Recommended elective outpatient cystoscopy for stone treatment/stent placement. -Started IV ceftriaxone during admission: Converted to p.o. Keflex 500 mg 3 times daily x5 days prior to discharge -Patient stated that she has an outpatient appointment in [place] (likely [facility]), on April 05. Unable to verify this (called: No response) but [facility] urology willing to see patient for outpatient follow- up/cystoscopy, should patient need one. Takotsubo cardiomyopathy -Had an episode very similar to the present one in 11/2018 with nephrolithiasis followed by neck/jaw pain. EF was found to be 30-35%. She underwent catheterization which demonstrated non-obstructive CAD. She was diagnosed with stress-induced cardiomyopathy. She had a LifeVest for some time and was on goal- directed therapy. EF improved to 50-55% in 04/2019, and most recent EF was 55- 60% on echo in 10/2020. -Presentation on admission concerningly similar to prior episode. -Coreg, ramipril, and spironolactone all stopped on admission. Patient switched to metoprolol tartrate 12.5 mg p.o. twice daily. -Patient received one-time dose of IV Lasix 40 mg prior to heart cath due to pulmonary edema. -TTE (03/31/2022) EF = 25 to 30%; extensive LV wall motion abnormalities, with "apical and mid ventricular akinesis and ballooning, only the basal segments move normally." -Cardiac cath (03/31/2022): 60% ostial stenosis of bifurcating medium D1, 40% mid LAD after D1. Sluggish distal flow. No high risk disease to explain LV dysfunction, chest pain. Findings most consistent with Takotsubo cardiomyopathy . * Recommended initiation of high intensity statin therapy (atorvastatin 40 mg every morning). Sent 1 month prescription to pharmacy at discharge. * continue b alexx and ACEi Elevated troponin-resolved -Initial troponin elevated to 120. Peaked to 2709.1, before downtrending. -EKG with many PVCs. Cardiology did not think this was a new LBBB. -Cardiac catheterization: Findings consistent with Takotsubo cardiomyopathy. Hypertension -BP 135/75 in the ER. Remained well controlled for duration of hospital stay. * Stopped Coreg, ramipril, spironolactone on admission. Stopped on discharge pending further med review by outpatient PCP. * BPs well-managed on metoprolol tartrate 12.5 p.o. twice daily - to consider transition of coreg to metoprolol in outpatient setting. Depression/anxiety -Continued home duloxetine -Sent home on short course of lorazepam 0.5 mg twice daily for moderate to severe anxiety. Psychosocial needs -On assessment prior to discharge, case management recommended home health nurse for greater transition of care, given complex health planning/medication adherence needs, patient's level of anxiety. However, patient refused home health care. Patient's family also expressed concern for patient's nonadherence, as she is already displayed similar behavior in the past. In addition, while admitted, patient also refused some of her medications while inpatient. -Consequently, case management initiated referral to [facility]. -Nurse navigator scheduled to call patient on Monday to assess patient's status/reassess need for home health. (2) Elevated troponin: (3) Takotsubo cardiomyopathy: (4) Hypertension: (5) Depression: (6) DVT prophylaxis: Total Time Total Time Spent Total Time Spent (In Minutes): 20 Discharge Plan Discharge Items Patient Disposition: Home - Self-Care Reason For Visit: KIDNEY STONE, ELEVATED TROPONIN Discharge Diagnosis: Takotsubo cardiomyopathy, nephrolithiasis Activity: Per Instructions section Non-emergency contact: Primary Care Provider Call non-emergency contact if: you have any medication questions, your symptoms worsen, your pain is worsening and you have a fever Follow-up/Referrals: Angeles Foster DO [Primary Care Provider] - 04/18/22 10:45 am Diet: Regular Addtl Attending Provider Instructions: You were admitted to the hospital for a kidney stone, as well as a stress- related change to your heart, otherwise known as Takotsubo. You were treated with IV fluids and your home meds. You were seen by our urology service, and they decided that you were stable enough to be reevaluated on an outpatient basis. You were also evaluated by our cardiology service, because you had some concerning elevations in your heart enzymes when you were admitted. They performed a heart catheterization in order to rule out any coronary arterial blockages. Thankfully, there were none. As a result, we feel that you are medically stable enough to be discharged home. A discharge summary will be sent to your primary care physician to ensure continuity of care. Please bring this discharge summary with you to your next office appointment so that your provider can review it at that time. Follow-up appointments: * Make a follow-up appointment with your PCP within the next week. It is very important that you follow up with them shortly after discharge from the hospital. * Please call your urologist in [place] in order to confirm that you indeed have an appointment on April 05. We will also reach out to them in order to confirm the same. If you do not have a scheduled appointment to see them, we will have [facility] give you a call to set up an appointment. * Keep all your follow-up appointments as already scheduled. If you cannot make an appointment, notify your provider. Medications: Your medication list has been reviewed and reconciled upon discharge to ensure accuracy and continuity of care. An updated list of all your medications is included with your hospital discharge paperwork. Please review this list closely, and make note of any changes. * We sent a new medication called cephalexin, or Keflex, to your pharmacy. Take Keflex 500 mg three times a day for 5 days. * We sent a new medication called atorvastatin, or Lipitor, to your pharmacy. Take atorvastatin 40 mg once daily. * We sent a new medication called lorazepam, or Ativan, to your pharmacy. Take one tablet of Lorazepam, as needed for anxiety. * We reduced the dose of your Coreg, or carvedilol, to half of the previous dose . In other words, you would take a half tablet, or 3.125 mg once daily. * That said, do not take any of your hypertension meds (carvedilol, ramipril) until they have been reviewed by your PCP. * Finally, we stopped your spironolactone. Do not take unless otherwise instructed by your primary care physician. Take your medications as instructed; do not skip a dose of your medicines. Make sure all of your doctors know every medicine you are taking (including [id number] medicines, vitamins, and supplements). Call your primary care provider before taking any new medicines (including [id number] medicines, vitamins, and supplements), because some of these may interact with your current medications, or may make your symptoms worse. Tell your primary care provider if you cannot afford your medications. CONTACT YOUR PRIMARY CARE PROVIDER if you experience any of the following: * Sudden chest pain that lasts for up to 30 minutes * Intense flank pain similar to your kidney stone pain * Fever/chills, or vomiting * Difficulty following your treatment plan, or difficulty taking medications CALL 911 OR GO TO THE EMERGENCY DEPARTMENT if you experience any of the following: * Sudden, severe abdominal pain or nausea/vomiting * Severe chest pain, or chest pain that radiates (moves) to your jaw or arm * Sudden, severe shortness of breath or difficulty breathing Thank you for allowing us to participate in your care. Pending Studies at Discharge: No Stand-Alone Forms: My [facility], Smoking Cessation Medications and DC Order Prescriptions: New cephalexin 500 mg capsule 500 mg PO TID 5 Days Qty: 15 RF: 0 atorvastatin 40 mg tablet 40 mg PO DAILY 30 Days Qty: 30 RF: 0 lorazepam 0.5 mg tablet 0.5 mg PO BID PRN (Reason: anxiety) Qty: 10 RF: 0 Continued ropinirole 0.5 mg tablet 0.25 mg PO HS PRN (Reason: restless leg(s)) Qty: 30 RF: 2 cholecalciferol (vitamin D3) 50 mcg (2,000 unit) capsule 50 mcg PO DAILY Qty: 30 RF: 0 spironolactone 25 mg tablet 25 mg PO DAILY Qty: 90 RF: 3 ramipril 5 mg capsule 5 mg PO DAILY Qty: 90 RF: 3 diphenhydramine HCl 25 mg capsule 25 mg PO DAILY PRN (Reason: ALLERGIES/SLEEP/ITCHING) RF: 0 cetirizine 10 mg tablet 10 mg PO DAILY PRN (Reason: Congestion) RF: 0 simethicone [Gas-X Extra Strength] 125 mg capsule 125 mg PO DAILY PRN (Reason: GAS DISCOMFORT) RF: 0 famotidine 10 mg tablet 10 mg PO DAILY RF: 0 aspirin [Adult Low Dose Aspirin] 81 mg tablet,delayed release (DR/EC) 81 mg PO DAILY RF: 0 baclofen 10 mg tablet 10 mg PO BID PRN (Reason: MUSCLE SPASMS) RF: 0 magnesium 250 mg tablet 250 mg PO DAILY RF: 0 hydrocodone-acetaminophen 5-325 mg tablet 1 tab PO DIRECTED PRN (Reason: Pain) RF: 0 duloxetine [Cymbalta] 30 mg capsule,delayed release(DR/EC) 30 mg PO QPM RF: 0 Changed carvedilol [Coreg] 6.25 mg tablet 3.125 mg PO QPM Qty: 0 RF: 0 Discharge Orders: Discharge Order (Routine); Ordered 04/01/22 Ordered By: Nidia Ardon Admission Data Admit Date/Time: 03/30/22 21:37 Attending Provider: Mary Little Admit Provider: Yoshi Storey Primary Care Provider: Angeles Foster Other Providers: Yoshi Storey ; Hilario Harvey ; John Iqbal Other Interventions: Discharge Summary Assessment (RN) Last Done: 04/01/22 11:04 Supervising Physician Co-Signing Physician Notes Resident Physician Supervision Note: I independently interviewed and examined the patient and verified the avendaño history and physical, reviewed labs and image studies and agree with resident Dr. Ardon findings and care plan. Resident Activity Tracking Resident Involvement: Resident Care Provided Care Provided: Adult Hospital Medicine
--- NOTE | 2022-04-01 09:19 | Electrocardiogram Report ---
Test Reason : Blood Pressure : / mmHG Vent. Rate : 070 BPM Atrial Rate : 070 BPM P-R Int : 170 ms QRS Dur : 104 ms QT Int : 474 ms P-R-T Axes : 070 -35 248 degrees QTc Int : 511 ms Sinus rhythm with occasional Premature ventricular complexes Left axis deviation Possible Septal infarct (cited on or before 01-APR-2022) Prolonged QT Abnormal ECG When compared with ECG of 31-MAR-2022 05:36, T-wave inversion in Anterolateral leads more pronounced Confirmed by Ben Zabala ([id number]) on 04/01/2022 9:18:55 AM Referred By: REFERRED SELF Confirmed By:Ben Zabala
[2022-04-01] MEDS ORDERED: LORazepam 0.5 MG TAB PO STA (09:38)
[2022-04-01] MEDS: ATORVASTATIN 40 MG TAB PO SCH ×2 (09:49→10:27)
[2022-04-01] MEDS: MAGNESIUM OXIDE 400 MG TAB PO SCH ×2 (09:50→10:28)
[2022-04-01] MEDS: CHOLECALCIFEROL 1,000 UNITS 25 MCG TAB PO SCH ×2 (09:50→10:28)
--- NOTE | 2022-04-01 10:22 | Urology Progress Note ---
Date of Service April 01, 2022 Assessment & Plan (1) Right ureteral calculus: (2) Acute flank pain: Plan: 76yo F admitted with acute onset of right flank pain, diaphoresis, and shortness of breath and found to have an obstructing 8mm distal right ureteral stone as well as elevated troponin. Due to her cardiac history and elevated troponin she is undergoing cardiac evaluation. Patient underwent cardiac stent yesterday and findings were most consistent with Takotsubo cardiomyopathy. - No reported pain this morning. - Pt afebrile, hemodynamically stable. - Labs reviewed 03/31- No leukocytosis and renal function normal. - Urine culture is pending, on IV Ceftriaxone. - No intervention planned at this time. - Patient has declined stent placement as she is not having any pain/symptoms and prefers to follow-up with her urologist in [place]. - Reports that she has a follow-up visit already scheduled next week with her urologist. - Reviewed in detail signs/symptoms that would warrant return to the hospital, patient verbalized an understanding. - Discussed with hospital team. - Urology will sign-off. Please contact us with any questions, concerns, or changes in patient status. Admission and Anticipated Discharge Date Admission Date: March 30, 2022 Subjective Patient examined at bedside this AM. Awake, resting in bed on arrival. Pt is upset that she is still here and is asking to be discharged. Anxious and restless appearing. States she does not want a stent. Prefers to follow-up with her urologist in [place] and states she has a follow-up on 04/05. She denies any pain or discomfort at present. Denies f/c/n/v. Denies any issues with voiding. Denies hematuria or dysuria. Review of Systems Constitutional: as per Subjective / HPI Genitourinary: as per Subjective / HPI Psychiatric: as per Subjective / HPI Physical Exam Constitutional: no acute distress Restless Respiratory: no respiratory distress and no labored breathing Neurologic: moves all extremities and awake Psychiatric: Orientation: alert and oriented x 3 Affect: + anxious affect Results & Data ([facility]) Vital Signs (Past 12 Hours) Vital Signs Temp Pulse Pulse Pulse Resp BP BP 04/01/22 07:09 36.6 C 76 19 105/65 04/01/22 03:12 36.6 C 72 18 100/60 03/31/22 23:59 83 03/31/22 23:12 36.6 C 83 18 99/57 L Pulse Ox 04/01/22 07:09 95 04/01/22 03:12 96 03/31/22 23:59 03/31/22 23:12 96 PG Care Time/CCT Total # of Minutes Spent Total Time Spent with Patient: Total time spent is greater than 50% in coordination of care (as documented) at patient's floor/unit and/or counseling patient: Coding Level of Care Code 58568 Subseq Hosp Care Lvl 2 Diagnoses Acute flank pain R10.9 Right ureteral calculus N20.1
[2022-04-01] MEDS: FAMOTIDINE 10 MG TABLET PO SCH (10:28)
[2022-04-01] MEDS: ASPIRIN 81 MG ECTAB PO SCH (10:45)
[2022-04-01] MEDS: METOPROLOL TARTRATE 25 MG TAB PO SCH (10:45)
--- NOTE | 2022-04-01 12:50 | Cardiology Progress Note ---
Date of Service April 01, 2022 Assessment & Plan (1) Elevated troponin: Plan: -secondary to her Takotsubo cardiomyopathy. (2) Coronary artery disease: Plan: -catheterization revealed a 40% mid LAD and 60% ostial D1 stenosis. -stable compared to cardiac catheterization performed in 2019. -continue medical management. (3) Takotsubo cardiomyopathy: Plan: -would continue her usual outpatient carvedilol. -would add losartan 25 mg daily. -follow-up an echocardiogram with me in 3-4 weeks. (4) Renal colic: Plan: -resolved Admission and Anticipated Discharge Date Admission Date: March 30, 2022 Subjective The patient is very angry this morning claiming that she is not receiving good care and that her room is filthy. She has refused her morning medications and wants to leave immediately. We have discussed the results of her cardiac catheterization and the need to adjust her medical therapy. She 6 plane should be willing to see me in the outpatient setting in [place]. Physical Exam Physical Exam: In general this is a well-developed well-nourished white female in no acute distress. HEENT exam is negative. Neck is supple with full carotid upstrokes. There are no carotid bruits. Jugular venous pressure is flat at 90. There is no thyromegaly. Cardiovascular exam reveals a regular rhythm with a normal S1 and S2. No S3, S4, or murmurs are noted. Lungs are clear without rales, rhonchi, or wheezes. Abdomen is soft and nontender without bruits. Extremities reveal intact radial artery and posterior tibial pulses bilaterally. There is no peripheral edema. Results & Data ([facility]) Vital Signs (Past 12 Hours) Vital Signs Temp Pulse Pulse Pulse Pulse Resp BP 04/01/22 11:04 36.6 C 72 76 75 19 100/60 04/01/22 07:09 36.6 C 76 19 04/01/22 06:30 80 04/01/22 03:12 36.6 C 72 18 100/60 BP Pulse Ox 04/01/22 11:04 105/65 95 04/01/22 07:09 105/65 95 04/01/22 06:30 04/01/22 03:12 96 Diagnostic Findings playground monitor is benign. PG Care Time/CCT Total # of Minutes Spent Total Time Spent with Patient: Total time spent is greater than 50% in coordination of care (as documented) at patient's floor/unit and/or counseling patient: Coding Level of Care Code 10991 Subseq Hosp Care Lvl 3 Diagnoses Elevated troponin R77.8 Coronary artery disease I25.10 Takotsubo cardiomyopathy I51.81 Renal colic N23
== END 2022-04-01 13:00 | disposition home health service (06) | DRG 287 ==
LOC: ED 19:00 → 2N 21:37 → INTOOBSV 21:37 → SUATTDRO 21:37 → 2N 22:54 → 2S 03-31 14:59